=== PATIENT | female | born 1965 | race Caucasian/White ===

== ENCOUNTER 2016-10-04 13:29 | Inpatient (IN) | payer OTHER ==
--- NOTE | ~2016-10-04 | OP ---
Record Of Operation [facility] [address] [place]. [address] NAME: SARA BOWLING : 65 STATUS : ADM IN [facility]#: [id number] AGE: 50 ADM/REG DATE : 10/04/16 MR#: [id number] REPORT SERV DATE: 10/05/16 DICTATED BY: IBRAHIMA ALONSO DATE: 10/04/16 REPORT STATUS : Draft TRANSCRIBED BY: MODL DATE: 10/04/16 DATE OF PROCEDURE: 10/04/2016 PREOPERATIVE DIAGNOSES: 1. 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 2. Chronic obstructive pulmonary disease with bronchitis and recent steroid usage and admission to the hospital. 3. Morbid obesity. 4. Hypertension with noncompliance of medication. POSTOPERATIVE DIAGNOSES: 1. 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 2. Chronic obstructive pulmonary disease with bronchitis and recent steroid usage and admission to the hospital. 3. Morbid obesity. 4. Hypertension with noncompliance of medication. PROCEDURE: 1. Incision and drainage of multiple complex left perineal abscesses. 2. Sharp excisional debridement of skin, subcutaneous tissue, and muscle left perineum (23.8 x 3.1 x 4.6 cm). ANESTHESIA: General. SURGEON: Ibrahima Alonso M.D. UPHOLSTERY HANDLER: Enzo. COMPLICATIONS: None. DRAINS: None. ESTIMATED BLOOD LOSS: 50 mL. OPERATIVE TECHNIQUE: The patient was brought to the operating room and placed on the table in supine position. She had preoperative IV antibiotics. She had sequential hose in place. She had a Avery catheter placed. She underwent general endotracheal anesthesia and was placed in lithotomy position and prepped and draped in sterile fashion and time-out was completed. The patient was noted to have a large black necrotic wet foul-smelling area of skin, approximately 4 to 5 cm in circumference, just superior and to the left of the rectum at the base of the labia. This entire necrotic area was excised using electrocautery. The wet necrotic slough was excised deep into the musculature at the perineum, and the patient then had expression of the wound that tracked distally toward the buttock, approximately 6 cm posteriorly. This abscess cavity was completely drained and opened. The patient was noted to have tracking anteriorly of this abscess cavity into multiple abscesses up onto the inguinal region and the lower left abdomen. The entire skin subcutaneous tissue, and muscle Record Of Operation [address] [place]. [address] NAME: SARA BOWLING : 65 STATUS : ADM IN PAT#: [id number] AGE: 50 ADM/REG DATE : 10/04/16 MR#: [id number] REPORT SERV DATE: 10/05/16 DICTATED BY: IBRAHIMA ALONSO DATE: 10/04/16 REPORT STATUS : Draft TRANSCRIBED BY: MODL DATE: 10/04/16 was then excised sharply to remove all wet necrotic slough and drained all the complex multiple abscesses. The fluid was drained, and tissue was sent for multiple cultures as well as histology. After all the necrotic tissue was drained and the abscesses unroofed with electrocautery, the hemostasis was obtained using electrocautery and suture ligation with 3-0 Vicryl sutures. The wound was then irrigated with pulse lavage for 3 L and noted to be hemostatic. Aquacel Ag was then placed in the wound followed by dry gauze and mesh underwear. She tolerated the procedure well and was taken to the intensive care unit intubated and in critical condition. /MARY Ibrahima Alonso M.D. / [id number] CC: Татьяна Crowell M.D.
--- NOTE | ~2016-10-04 | CN ---
Consultation Report [facility] [address] [place]. [address] NAME: SARA BOWLING : 65 STATUS : ADM IN [facility]#: [id number] AGE: 50 ADM/REG DATE : 10/04/16 MR#: [id number] REPORT SERV DATE: 10/05/16 DICTATED BY: KYLE INIGUEZ DATE: 10/04/16 REPORT STATUS : Draft TRANSCRIBED BY: MODL DATE: 10/04/16 CONSULTATION DATE OF CONSULTATION: 10/04/2016 TIME: 1842 hours seen in CVICU bed 18 after her operation. HISTORY OF PRESENT ILLNESS: The patient's history is from the chart. The patient is a 50- year-old white female, who was admitted to the emergency room at [facility] after presenting with vaginal discharge, onset approximately a day ago. Note her vaginal area is enlarged and had a lot of pus. According to notes, the patient had been previously hospitalized for COPD and hypertension in [place]. She also complains of urinary retention. She has been treated for COPD in the past. Unknown about her medication history at this point in time. The patient is . She lives with her spouse. Smoked in the past. FAMILY HISTORY: Negative. History of COPD and hypertension. REVIEW OF SYSTEMS: As noted above, which is significant for fever, shortness of breath, dysuria, and frequency. Other systems reviewed were negative. PHYSICAL EXAMINATION: GENERAL: Right now, the patient is orally intubated. VITAL SIGNS: Blood pressure 120/70, pulse is about 90. HEENT: Head is normocephalic. Sclerae and conjunctivae are clear. NECK: Supple. Good upstroke. CHEST: Bilateral expiratory wheezing, very prolonged. CARDIAC: S1 and S2. No murmurs or gallops. ABDOMEN: Slightly obese. As far as I can tell, nontender. Bowel sounds present. Her lower perineal area is dressed on the left side. EXTREMITIES: No clubbing, cyanosis, or edema. Pulses are palpable. NEUROLOGIC: She is still coming out of anesthesia. LABORATORY DATA: Recent blood gas on mechanical ventilation showed a pH of 7.30, pCO2 of 47, PO2 of 255 on 80%, rate of 14, 500, PEEP of 4. Her procalcitonin is 2.47. Her lactate level is 1.5. BNP is 57. Her sodium was 131, potassium 3.3, chloride 94, CO2 of 21, BUN 11, creatinine 0.7, glucose 128, calcium 7.9, total protein 6.4, albumin 2.0, total bilirubin 1.6, alkaline phosphatase 115, ALT 30, AST 29. Troponin less than 0.02. Urinalysis showed greater than 182 red blood cells, 92 white blood cells, white blood cell clumps, rare bacteria. CBC showed an H and H of 12.3 and 34.6, white count 79245, platelet count 102,000 with 49 polys 45 bands. Toxic granulations +1. PTT is 25.6, PT 15, INR 1.2. Chest x-ray showed no acute cardiopulmonary disease. Lines are in place. OG tube is in place. Consultation Report [address] [address] NAME: SARA BOWLING : 65 STATUS : ADM IN [facility]#: [id number] AGE: 50 ADM/REG DATE : 10/04/16 MR#: [id number] REPORT SERV DATE: 10/05/16 DICTATED BY: KYLE INIGUEZ DATE: 10/04/16 REPORT STATUS : Draft TRANSCRIBED BY: MARY DATE: 10/04/16 IMPRESSION: 1. Probable Sam's gangrene and sepsis, vaginal area. 2. Chronic obstructive pulmonary disease with chronic obstructive pulmonary disease exacerbation. 3. History of hypothyroidism. 4. History of hypertension. Of note, prior to surgery, blood pressure was over 200 and her heart rate was about 205. She was given Cardizem. Blood pressure controlled currently on 1 mcg per minute of Levophed. PLAN: Will be to initiate bronchodilator therapy, IV Solu-Medrol, and wean from ventilator when appropriate. We will continue present antibiotics. Infectious Disease to see. Anesthesia record has been reviewed. Her home medications include prednisone, diltiazem, levothyroxine, Primaxin, and ProAir. ALLERGIES: UNKNOWN AT THIS TIME. RP/MARY Kyle Iniguez M.D. / [id number] CC: Ibrahima Bernabe M.D. Edmundo Owusu M.D.
--- NOTE | ~2016-10-04 | CN ---
Consultation Report [facility] [address] [place]. [address] NAME: SARA BOWLING : 65 STATUS : ADM IN [facility]#: [id number] AGE: 50 ADM/REG DATE : 10/04/16 MR#: [id number] REPORT SERV DATE: 10/05/16 DICTATED BY: CHELSIE LUNDY DATE: 10/05/16 REPORT STATUS : Draft TRANSCRIBED BY: MODL DATE: 10/05/16 INFECTIOUS DISEASE CONSULTATION DATE OF CONSULTATION: 10/05/2016 REASON FOR CONSULTATION: Sam gangrene. HISTORY OF PRESENT ILLNESS: This is a 50-year-old female with a past medical history notable for COPD and hypertension. She also is obese. There apparently is not a history of diabetes. She presented to the emergency department at [facility] around noon yesterday complaining of a few days of a vaginal discharge. She also complained of shortness of breath. Apparently, she had been recently hospitalized in [place], although I do not have those details yet. On initial evaluation, she was found to have a marked bandemia and physical exam showed obvious evidence of infection involving her left perineum with black gangrenous changes and foul-smelling gangrene, suggestive of Sam gangrene. The patient was taken urgently to the operating room by Dr. Bernabe with findings indeed of multiple abscesses and foul-smelling drainage with tracking up into the left inguinal region and lower left abdomen, deep into the musculature of the perineum and distally toward the buttock. Extensive debridement was done and multiple cultures were sent, showing gram- positive and gram-negative organisms on Gram stain. I have discussed the case with Dr. Bernabe, and the patient was placed on vancomycin and Zosyn. Overnight, she has done well and that she has been hemodynamically stable and not requiring pressors. She remains on the ventilator. PAST MEDICAL HISTORY: As outlined above, otherwise unremarkable. ALLERGIES: PENICILLINS. APPARENTLY, PENICILLIN IS LISTED AND SAID TO CAUSE DRY MOUTH. OUTPATIENT MEDICATIONS: Listed as albuterol, diltiazem, levothyroxine, ProctoFoam, and prednisone which apparently was started on 09/30. SOCIAL HISTORY: The patient is . Long-term smoker. Nondrinker. FAMILY HISTORY: Difficult to obtain. REVIEW OF SYSTEMS: Otherwise negative. PHYSICAL EXAMINATION: VITAL SIGNS: The patient weighs 95 kg. She has been afebrile. Pulse at present is around 76, it was as high as 118. Blood pressure 104/59. The patient is on the ventilator, FiO2 of 44%. HEAD AND NECK: Other than her intubated status is unremarkable. LUNGS: Notable for some scattered rhonchi. Consultation Report [facility] [address] [place]. [address] NAME: SARA BOWLING : 65 STATUS : ADM IN [facility]#: [id number] AGE: 50 ADM/REG DATE : 10/04/16 MR#: [id number] REPORT SERV DATE: 10/05/16 DICTATED BY: CHELSIE LUNDY DATE: 10/05/16 REPORT STATUS : Draft TRANSCRIBED BY: MARY DATE: 10/05/16 CARDIAC: Distant heart sounds. Regular rhythm. No murmur, gallop, or rub. ABDOMEN: Obese, soft, quiet, nontender. Postoperative dressings in her left perineum are not removed. EXTREMITIES: Show trace lower extremity edema. SKIN: Without rash. LINES: The patient has a right subclavian triple-lumen catheter. LABORATORY STUDIES: White blood cell count this morning is 15.0, 29% bands, hemoglobin 10.1, platelets are 89,000. Creatinine 0.61. Admission liver function tests normal. Albumin was 1.6. Lactate 1.5. Blood gas this morning shows a pH of 7.26, pCO2 of 52, PO2 of 84 on 45% FiO2. Admission urinalysis showed moderate leukocyte esterase, 92 white blood cells. Urine culture pending. Blood cultures negative to date. Wound cultures negative to date. I should note that the patient did have a CT scan of the abdomen and pelvis yesterday without IV contrast, which was described as showing a cellulitis with subcutaneous gas extending through the perineum into the left perirectal space and along the left pelvic side wall. IMPRESSION: Sam gangrene with sepsis on admission, now status post extensive debridement. Gram stains show evidence of polymicrobial infection. PLAN: We will continue empiric vancomycin and Zosyn pending culture results and will follow with you. PAN/MARY Chelsie Lundy M.D. / [id number] CC: Татьяна Crowell M.D.
--- NOTE | ~2016-10-04 | HP ---
History And Physical [address] [place]. [place]. [address] NAME: SARA BOWLING : 65 STATUS : ADM IN [facility]#: [id number] AGE: 50 ADM/REG DATE : 10/04/16 MR#: [id number] REPORT SERV DATE: 10/04/16 DICTATED BY: IBRAHIMA ALONSO DATE: 10/04/16 REPORT STATUS : Draft TRANSCRIBED BY: MODCastillo DATE: 10/04/16 DATE OF ADMISSION: 10/04/2016 CHIEF COMPLAINT: Left perineal Sam gangrene with sepsis DICTATION ENDS HERE. BRENTON/MARY Ibrahima Alonso M.D. / [id number] CC: Татьяна Crowell M.D.
--- NOTE | ~2016-10-04 | HP ---
History And Physical [place] [address] [facility] [place]. [address] NAME: SARA BOWLING : 65 STATUS : ADM IN [facility]#: [id number] AGE: 50 ADM/REG DATE : 10/04/16 MR#: [id number] REPORT SERV DATE: 10/04/16 DICTATED BY: IBRAHIMA ALONSO DATE: 10/04/16 REPORT STATUS : Draft TRANSCRIBED BY: MODCastillo DATE: 10/04/16 DATE OF ADMISSION: 10/04/2016 HISTORY OF PRESENT ILLNESS: This 50-year-old female presents to the emergency department with a three-day history of vaginal discharge and pain in the left labia. She was recently hospitalized for COPD, bronchitis, and hypertension, in [facility] per the family. She has a long history of cigarette smoking, and morbid obesity. She has been on steroids for her treatment during this course. She was evaluated in the emergency department and [place] [address]. She subsequently had examination and she was noted to have left labial gangrene and soft tissue infection with bullous and crepitance extending up onto the abdomen and to the left perineum. There is black necrotic tissue along the entire left labia. On exam, the patient has fluctuance and pain and foul smell consistent with Sam's gangrene. Her heart rate is greater than 200 in the preoperative holding area and has been treated. The patient's states that she was on an anti- hypertensive pill and she has not been taking it for fear of complications with her lung disease. The patient's and sister at the bedside along with the patient and they are aware that this is a life threatening infection. She has significant shortness of breath, and dyspnea with increased work of breathing and wheezing that is audible. Her SaO2 was 88%. She does have abscess on CT of the soft tissue. PAST MEDICAL HISTORY: As above. PAST SURGICAL HISTORY: No previous history for soft tissue infections. SOCIAL HISTORY: The patient quit smoking on her admission to the hospital approximately 1 week ago. She denies alcohol or illicit drug usage. Her is at the bedside. She is retired. FAMILY HISTORY: Negative for COPD, coronary artery disease, diabetes, hypertension or cancer. REVIEW OF SYSTEMS: Positive for subjective fever, wheezing, shortness of breath, cough, pelvic pain. PHYSICAL EXAMINATION: GENERAL: The patient is an ill-appearing female with increased work of breathing and tachypnea. NECK: Supple. CARDIOVASCULAR: Regular rate with tachycardia. RESPIRATORY: Diffuse rhonchi and wheezing with increased work of breathing and accessory muscle usage. ABDOMEN: Obese, soft, nondistended. BACK: No CVA tenderness. EXTREMITIES: No clubbing. The patient has 1+ pitting edema bilaterally in her lower extremities. : The patient has a left labial abscess with black gangrene and foul smelling drainage History And Physical [address] [address] NAME: SARA BOWLING : 65 STATUS : ADM IN [facility]#: [id number] AGE: 50 ADM/REG DATE : 10/04/16 MR#: [id number] REPORT SERV DATE: 10/04/16 DICTATED BY: IBRAHIMA ALONSO DATE: 10/04/16 REPORT STATUS : Draft TRANSCRIBED BY: MARY DATE: 10/04/16 with erythema bullous and crepitance up on to the left inguinal region, and left perineum. IMAGING: CT findings as above. ASSESSMENT: 1. Sam's gangrene on the left labia and perineum with abscess. Septic shock secondary to Sam gangrene. 2. COPD exacerbation with severe hypoxia wheezing and recent steroid treatment with hospitalization. 3. Morbid obesity. 4. Nicotine dependence. PLAN: After discussion with the family, they understand this infection is life-threatening and that the mortality rate can be as high as 80% with her comorbidities and presentation. They are aware that she will need ICU care after the surgery, if she survives the procedure and may need further surgical intervention. They are aware of the risks, including bleeding, infection, poor cosmetic result, need for further surgical intervention including reconstruction, as well as unforeseen complications such as DVT, PE, WA, CVA and even . They wish to proceed. BRENTON/MARY Ibrahima Alonso M.D. / [id number] CC: Ibrahima Alonso M.D. Edmundo Owusu M.D.
--- NOTE | ~2016-10-04 | OP ---
Record Of Operation [facility]. [address] NAME: SARA BOWLING : 65 STATUS : ADM IN PAT#: [id number] AGE: 50 ADM/REG DATE : 10/04/16 MR#: [id number] REPORT SERV DATE: 10/13/16 DICTATED BY: IBRAHIMA ALONSO DATE: 10/13/16 REPORT STATUS : Draft TRANSCRIBED BY: MODL DATE: 10/13/16 DATE OF PROCEDURE: 10/13/2016 PREOPERATIVE DIAGNOSES: 1. Sam gangrene with sepsis on admission. 2. Chronic obstructive pulmonary disease with history of recent steroid treatment. 3. Nicotine dependence of cigarettes. 4. Hypertension. 5. Large left perineal wound with necrotic slough. 6. Morbid obesity. 7. Diabetes mellitus type 2. POSTOPERATIVE DIAGNOSES: 1. Sam gangrene with sepsis on admission. 2. Chronic obstructive pulmonary disease with history of recent steroid treatment. 3. Nicotine dependence of cigarettes. 4. Hypertension. 5. Large left perineal wound with necrotic slough. 6. Morbid obesity. 7. Diabetes mellitus type 2. PROCEDURES: 1. Robotic diverting sigmoid colostomy. 2. Excision of sigmoid polyp at colostomy maturation site. 3. Sharp excisional debridement of skin, subcutaneous tissue, fascia, and muscle (12.0 x 3.9 x 12.0 cm). 4. VAC pack placement (NPWT). ANESTHESIA: General. SURGEON: Ibrahima Alonso M.D. ASSISTANTS: Carlee and Malcom. COMPLICATIONS: None. DRAINS: None. ESTIMATED BLOOD LOSS: 50 mL. FINDINGS: 1. The patient was noted to have improving necrotic slough in her left perineal wound with minimal purulent drainage in the supralevator component that was thoroughly irrigated. The entire wound was once again debrided of skin, subcutaneous tissue, fascia, and muscle using electrocautery with significantly less total involvement of the wound. There was no evidence of any advancing or progressive myofasciitis clinically. Record Of Operation [facility]. [address] NAME: SARA BOWLING : 65 STATUS : ADM IN PAT#: [id number] AGE: 50 ADM/REG DATE : 10/04/16 MR#: [id number] REPORT SERV DATE: 10/13/16 DICTATED BY: IBRAHIMA ALONSO Castillo DATE: 10/13/16 REPORT STATUS : Draft TRANSCRIBED BY: MODCastillo DATE: 10/13/16 2. A VAC Pack was able to be applied without leak today after diverting colostomy. 3. When the colostomy matured, the patient was noted to have a large mucosal polyp with a long stalk that was excised with stalk cautery and the mucosa oversewn with chromic suture. OPERATIVE TECHNIQUE: The patient was brought to the operating room and placed on the table in supine position. She had general endotracheal anesthesia and a Avery that was previously placed. She underwent general endotracheal anesthesia and was prepped and draped in a sterile fashion and a time-out was completed. The patient then had a 12 mm supraumbilical trocar placed under direct visualization. The robotic camera was used and there was no evidence of Veress or trocar injury. The patient then had an 8 mm robotic trocar placed at the proposed colostomy site, as well as a right upper quadrant and a lateral 8 mm trocar placed under direct visualization. The patient then had an infraumbilical right lower quadrant 12 mm robotic trocar placed at the midclavicular line under direct visualization. The patient was then placed in sharp Trendelenburg and during this portion of the procedure, the patient was noted to have poor IV access and was placed flat again and two IVs were placed in the left arm. The patient was then repositioned and the instruments were then docked and the trocars were then docked with the patient in steep Trendelenburg. The double fenestrated atraumatic grasper was used in the lateral upper left most trocar for bowel elevation and fixation of the sigmoid colon. The #2 trocar in the left mid abdomen was used for an atraumatic grasper to mobilize the bowel and in the right lower quadrant, the vessel sealer, scissor, and stapler was used. After all the instruments were docked and positioned, the sigmoid colon was examined and noted to be mobile. It was then grasped and elevated with the third arm and at this point, dissection began and a window was created in the mesenteric border of the distal sigmoid colon and along mesentery and it was visible. The window was created using initially a scissor, hot jamie, and then the Harmonic Scalpel was used and then the vessel sealer was used. It created a window as it was inserted under the bowel wall and elevated on the patient from right to left and completely visualized. The intervening mesentery was then divided under direct visualization down toward the retroperitoneum. The dissection remained close to bowel wall throughout the procedure and there was no dissection near the retroperitoneum. The mesentery was then mobilized along the white line of Toldt, but more toward the bowel side and the bowel was then completely mobilized after it was first divided with two stapled ends of the standard load fire stapler. The stapler was inserted in the right lower quadrant trocar and fired for protocol with excellent dissection noted along the distal segment. The bowel was then completely mobilized with blunt dissection and a vessel sealer. The bowel wall was viable with injection of indocyanine green prior to division. After an adequate length was deemed mobilized, the robotic portion was completed. A [place] clamp was then placed in the left lower quadrant trocar site and grabbed the stapled the proximal sigmoid colon. It was easily elevated to the anterior abdominal wall and with proper orientation without tension. At this point, the rest of the instruments and trocars were removed and undocked. The anterior fascia and the supraumbilical and right lower quadrant trocars were placed with 0 Vicryl sutures. The skin edges were then thoroughly irrigated and reapproximated using Vicryl sutures followed by Dermabond. The colostomy site was then created at the trocar site in left lower quadrant using electrocautery hook and dissected down to the anterior fascia. The anterior fascia was then dissected around the opening for the trocar site for approximately 2.5 cm and the bowel was dissected bluntly through the rectus muscle and to Record Of Operation [place] [id number] [facility] [place]. [address] NAME: SARA BOWLING : 65 STATUS : ADM IN PAT#: [id number] AGE: 50 ADM/REG DATE : 10/04/16 MR#: [id number] REPORT SERV DATE: 10/13/16 DICTATED BY: IBRAHIMA ALONSO DATE: 10/13/16 REPORT STATUS : Draft TRANSCRIBED BY: MODL DATE: 10/13/16 the posterior peritoneum which was then scored with a right angle clamp away from the bowel. The sigmoid colon was then easily mobilized through the anterior abdominal wall with approximately 11 cm of bowel noted above the fascia. The colostomy was then matured with interrupted three-point fixation 3-0 Vicryl sutures after the staple line was divided with electrocautery. After it was initially divided, the patient was noted to have a visible long polyp extending at the cautery line and it was grasped and elevated off the base of the mucosa and cauterized and sent to pathology. Actually, it was cut with a scissor at the base. The mucosa was reapproximated using interrupted chromic sutures. There was not a full-thickness lesion and the mucosa only was divided. There was a long stalk and it does not appear to be involved clinically. At this point, the colostomy was matured with 3-0 Vicryl three-point fixation and a colostomy appliance was applied. The patient was then re- prepped and draped in lithotomy position. The wound was then sharply debrided using electrocautery to excise all skin, subcu tissue, and muscle including deep into the left perirectal tissues. There did not appear to be rectal involvement clinically as there was no stool or other palpable abnormalities into the lumen. At this point, the necrotic tissue was all removed and then the wound was thoroughly irrigated and measured as above. The measurements were 12.0 x 3.9 x 12.0 cm. The patient then was able to have a black foam black VAC pack placed after two complete pieces of Aquacel Ag were placed in the deep left perirectal cavity. The negative pressure wound therapy was set at 750 mm continuous negative pressure with no leak. She tolerated the procedure well and was taken to the recovery room in critical condition. All sponge and needle counts were reported correct. DH/MODL Ibrahima Alonso M.D. / [id number] CC: Татьяна Crowell M.D. Hal Hill, M.D.
--- NOTE | ~2016-10-04 | OP ---
Record Of Operation [address] [place]. [address] NAME: SARA BOWLING : 65 STATUS : ADM IN PAT#: [id number] AGE: 50 ADM/REG DATE : 10/04/16 MR#: [id number] REPORT SERV DATE: 10/08/16 DICTATED BY: IBRAHIMA ALONSO DATE: 10/08/16 REPORT STATUS : Draft TRANSCRIBED BY: MODL DATE: 10/08/16 DATE OF PROCEDURE: 10/08/2016 PREOPERATIVE DIAGNOSES: 1. Sam gangrene and left perineum necrotic tissue and supralevator abscess. 2. Chronic obstructive pulmonary disease with bronchitis and recent steroid usage and hospitalization. 3. Morbid obesity. 4. Hypertension with noncompliance of medications. 5. Nicotine dependence with greater than [id number] history. 6. Atrial fibrillation. 7. He had a recent septic shock. POSTOPERATIVE DIAGNOSES: 1. Sam gangrene and left perineum necrotic tissue and supralevator abscess. 2. Chronic obstructive pulmonary disease with bronchitis and recent steroid usage and hospitalization. 3. Morbid obesity. 4. Hypertension with noncompliance of medications. 5. Nicotine dependence with greater than 14-[id number]-[id number] history. 6. Atrial fibrillation. 7. She had a recent septic shock. PROCEDURE: Sharp excisional debridement of skin, subcutaneous tissue, muscle, and fascia (29.5 x 3.8 x 12.2 cm). ANESTHESIA: General. SURGEON: Ibrahima Alonso M.D. SAFETY ADVISOR: Gavin. COMPLICATIONS: None. DRAINS: None. ESTIMATED BLOOD LOSS: 20 mL. FLUIDS: 50 mL. FINDINGS: The patient was noted to have minimal necrotic tissue extending mostly posteriorly with extension of a small abscess cavity above the levator muscles that was drained, cultured, and all the further necrotic tissue was excised. OPERATIVE TECHNIQUE: The patient was brought to the operating room and placed on the table in supine position. She remained intubated and sedated. She was placed in lithotomy Record Of Operation [place] [id number] [place]. [address] NAME: SARA BOWLING : 65 STATUS : ADM IN PAT#: [id number] AGE: 50 ADM/REG DATE : 10/04/16 MR#: [id number] REPORT SERV DATE: 10/08/16 DICTATED BY: IBRAHIMA ALONSO DATE: 10/08/16 REPORT STATUS : Draft TRANSCRIBED BY: MARY DATE: 10/08/16 position on the operative room table and prepped and draped in sterile fashion and a time- out was completed. The electrocautery Bovie was then used along with the sharp scissors to excise all the necrotic tissue including skin, subcutaneous tissue, fascia, and muscle. The patient was noted to have a fluid collection above the levator muscles consistent with a supralevator abscess and more necrotic tissue at the extreme proximal and distal edges of the wound extending into the left inguinal region and lower left lower quadrant and posteriorly toward the buttock. All 100% and the necrotic tissue that was visible was excised. The cultures were obtained from the abscess. The tissue was sent to pathology. The wound was then packed with Aquacel Ag dressings followed by ABD and mesh underwear. She was taken in critical condition to the ICU intubated and sedated. She tolerated this portion of the procedure well. BRENTON/MARY Ibrahima Alonso M.D. / [id number] CC: Татьяна Crowell M.D.
--- NOTE | ~2016-10-04 | DS ---
Discharge Summary [facility] [address] [place]. [address] NAME: SARA BOWLING : 65 STATUS : DIS IN PAT#: [id number] AGE: 51 ADM/REG DATE : 10/04/16 MR#: [id number] REPORT SERV DATE: 11/03/16 DICTATED BY: IBRAHIMA ALONSO DATE: 11/02/16 REPORT STATUS : Draft TRANSCRIBED BY: MARY DATE: 11/02/16 Data Collection from hospitalization DISCHARGE DIAGNOSES: 1. Sam gangrene of the left perineum with multiple abscesses and sepsis. 2. Chronic obstructive pulmonary disease with bronchitis and recent steroid usage and admission to the hospital. 3. Morbid obesity. 4. Hypertension with noncompliance of medications. 5. Nicotine dependence. 6. Diabetes mellitus. CONSULTATIONS: Dr. Giovanni Iniguez, Dr. Lamine Lundy. PROCEDURES: 1. Incision and drainage of multiple complex left perineal abscesses, sharp excisional debridement of skin, subcutaneous tissue, and muscle, left perineum (23.8 x 3.1 x 4.6 cm) 10/04/2016. 2. Sharp excisional debridement of skin, subcutaneous tissue, muscle, and fascia (29.5 x 3.8 x 12.2 cm) 10/08/2016. 3. Robotic diverting sigmoid colostomy, excision of sigmoid polyp at the colostomy maturation site, sharp excisional debridement of skin, subcutaneous tissue, fascia and muscle (12.0 x 3.9 x 12.0 cm) Vac-Pac placement (NPWT) 10/13/2016. 4. CT scan of the abdomen and pelvis without contrast, 10/04/2016. PATHOLOGY: Skin and soft tissue, left perineum-bacterial abscess and extensive necrosis, soft tissue perineal area-benign fibroadipose tissue with focal severe acute inflammation and fat necrosis, sigmoid colon polyp polypectomy-tubular adenoma without high-grade dysplasia, segment of sigmoid colon-within normal limits. DISCHARGE MEDICATIONS: Norvasc 10 mg twice a day, levothyroxine 50 mcg daily, Prinivil 10 mg daily, Mycostatin apply topically with dressing changes as directed, Mycostatin oral suspension 5 mL three times a day, Deltasone 20 mg as instructed, Levemir 30 units subcutaneously daily and 15 units subcutaneously at bedtime, dextrose 25 mL IV as needed, Cardizem 100 mg IV as needed, glucagon as instructed, glucose tablets three tablets as needed, Zenpep one capsule as needed, Percocet 5/325 one-two tablets every four hours as needed, ProAir two puffs via inhaler as needed. CONDITION AT DISCHARGE: Stable. DISPOSITION: The patient was discharged to [facility] on an 1800-calorie diabetic diet with activities as instructed. She would follow up with me on 11/06/2016. HOSPITAL COURSE: This is a 51-year-old female who presented to the emergency department with a three-day history of vaginal discharge and pain in the left labia. She was recently hospitalized for COPD, bronchitis, and hypertension in [place], [place], according to her family. She has a long history of cigarette smoking and morbid obesity. She had been on steroids for her treatment during the course. She was evaluated in the emergency Discharge Summary [address] [address] NAME: SARA BOWLING : 65 STATUS : DIS IN PAT#: [id number] AGE: 51 ADM/REG DATE : 10/04/16 MR#: [id number] REPORT SERV DATE: 11/03/16 DICTATED BY: IBRAHIMA ALONSO DATE: 11/02/16 REPORT STATUS : Draft TRANSCRIBED BY: MARY DATE: 11/02/16 department and noted to have a white blood cell count of 10,800. She subsequently had examination and was found to have left labial gangrene and soft tissue infection with bullous and crepitance extending up onto the abdomen and to the left perineum. There was black necrotic tissue along the entire left labia. On exam, the patient had fluctuance and pain and foul smell consistent with Sam gangrene. Her heart rate was greater than 200 in the preoperative holding area and this was treated. Her stated that she was on an antihypertensive pill and she had not been taking it for fear of complications with her lung disease. The patient's family was aware that this was a life-threatening infection. She had significant shortness of breath and dyspnea along with increased work of breathing and wheezing that was audible. CT scan of the abdomen and pelvis without contrast was performed. She was admitted to the hospital at this time for further evaluation and treatment. On admission, treatment options were discussed and it was elected to proceed with surgical intervention. She was taken to the operating room where she underwent the above-mentioned procedure. She tolerated this well. There were no complications. Postoperatively, she was seen by Dr. Giovanni Iniguez. The patient has chronic obstructive pulmonary disease with exacerbation. Her blood pressure prior to surgery was over 200 and her heart rate was about 205. She was given Cardizem. Her blood pressure was controlled currently on 1 mcg/minute of Levophed. We were going to initiate bronchodilator therapy as well as IV Solu-Medrol and wean her from the ventilator when appropriate. Antibiotics were continued as well as her home medications including prednisone, diltiazem, levothyroxine, Primaxin, and ProAir. The following day, she was seen by Dr. Lamine Lundy. Multiple cultures had been sent showing gram- positive and gram-negative organisms on Gram stain. The patient had been placed on vancomycin and Zosyn. Overnight, she had done well and she was hemodynamically stable and not requiring pressors. She remained on the ventilator at this time. White blood cell count was 15 with 29% bands. Admission liver function tests were normal. Blood cultures were negative to date. Urine culture was pending. Wound culture was negative to date. Her Gram stain had shown evidence of polymicrobial infection. We were going to continue empiric vancomycin and Zosyn pending the culture results. She was in a normal sinus rhythm on . She seemed to be doing well. She was afebrile. Synthroid was on hold due to her n.p.o. status. White count was 10.8. The patient was found to have lice. This was treated. She was going to be taken back to the operating room. She was not requiring pressors at this time. Tube feedings were going to begin. Her operative culture had revealed E coli as well as positive diphtheroids. She seemed to be making good progress. She was going to undergo repeat lice treatment on the . On 10/08/2016, she was taken back to the operating room where she underwent the above-mentioned procedure. She tolerated this well. There were no complications. Her insulin regimen was going to be increased. Amlodipine was increased. A PICC line was inserted. White count was now 7. On 10/09/2016, it was felt that the patient would probably need a diverting colostomy the following week if she remained stable from the wound healing. She was still sedated on the ventilator. She was felt to be recovering slowly. It was felt that her hypertension may be secondary to pain. Sliding scale insulin and Levemir were continued. White blood cell count was stable. On the morning of the , she was extubated. Chest x-ray was improving. She had better control of her diabetes. Plans were being made for her to be taken back to the operating room. Zosyn was continued. She was taken out of isolation. On Discharge Summary [place] [id number] [facility] [place]. [address] NAME: SARA BOWLING : 65 STATUS : DIS IN PAT#: [id number] AGE: 51 ADM/REG DATE : 10/04/16 MR#: [id number] REPORT SERV DATE: 11/03/16 DICTATED BY: IBRAHIMA ALONSO DATE: 11/02/16 REPORT STATUS : Draft TRANSCRIBED BY: MARY DATE: 11/02/16 10/13/2016, she was taken back to the operating room where she underwent the above-mentioned procedure. She tolerated this well and there were no complications. The following day, she was up sitting in a chair. She had no new complaints. Her abdomen was soft and nondistended. She was evaluated by Physical Therapy. She seemed to be making progress. On , she was afebrile. She did have some increased abdominal pain that day. She remained afebrile and her white blood cell count was normal. Zosyn was continued. She continued to make satisfactory progress. Nystatin was being given for thrush. She had had some confusion. She underwent diabetes education. She was also evaluated by Occupational Therapy. She had no further bleeding from the labial wound area. Pain was under better control with oral medications. Dressing changes were continued. On , she was tolerating oral intake. Discharge planning was performed. The PICC line was going to be removed. She remained afebrile. She seemed to be in good spirits. IV Pepcid was stopped. On 10/21/2016, she continued to progress. She remained afebrile, off antibiotics. She continued to do well. Discharge planning was performed. On 10/23/2016, she remained afebrile. She had no complaints. Discharge instructions were given. Due to her improved and stable condition, she was discharged to [facility] with the above-stated instructions. Information collected by: Alma Vasquez I submit the above information as my discharge summary. BAIRON/MARY Ibrahima Alonso M.D. / [id number] CC: Татьяна Crowell M.D. Hal Hill, M.D. [facility] Edmundo Owusu M.D.
[2016-10-04 12:43] LABS: ALLENS TEST Pos; BE (BASE EXCESS) -3.8 MEQ/L (0 +/- 2.5); HCO3 (ACTUAL BICARBONATE) 18.9 MEQ/L (23-27); HEMOBLOGIN CONTENT 12.4 G/DL (12-16); INSTRUMENT SERIAL # 8087; METHEMOGLOBIN 0.3 % (0-3); OPERATOR ID 14335; PCO2 (CO2 TENSION) 28 MMHG (35-45); PO2 (O2 TENSION) 70 MMHG (79-93); SAMPLE Arterial; pH 7.45 (7.37-7.43)
[~2016-10-04 13:29] MED LIST: CARDCD120 PO; LEVOTHYROXIN50 MCG PO; P20 PO; PROAIR HFA INH; PROCTOFOAM15 GM TOP
[2016-10-04 13:30] LABS: BASOPHILS 0.2 %; BASOPHILS ABSOLUTE 0.02 10/3/uL (0.0-0.16); EOSINOPHILS 0 %; HEMATOCRIT 34.6 % (36.0-48.0); HEMOGLOBIN 12.3 g/dL (12.0-16.0); IMMATURE GRANULOCYTES 0.5 %; LYMPHOCYTES 6.4 %; LYMPHOCYTES ABSOLUTE 0.69 10/3/uL (0.67-4.30); MEAN CORPUS HGB CONC 35.5 g/dL (32.0-36.0); MEAN CORPUSCULAR VOLUME 95.6 fL (80-100); MEAN PLATELET VOLUME 9.7 fL (9.2-13.0); MONOCYTES 6.7 %; MONOCYTES ABSOLUTE 0.72 10/3/uL (0.21-1.20); NEUTROPHILS 86.2 %; NEUTROPHILS ABSOLUTE 9.31 10/3/uL (2.02-8.40); PLATELET COUNT 102 10/3/uL (150-400); RBC DISTRIBUTION WIDTH 13.5 % (12.0-16.0); RED CELL COUNT 3.62 10/6/uL (4.0-5.6); WHITE BLOOD CELLS 10.8 10/3/uL (4.5-10.5)
[2016-10-04 13:31] LABS: IMMATURE GRANULOCYTES ABSOLUTE 0.05 10/3/uL (0.0-0.11); MANUAL DIFF NO %
[2016-10-04 13:47] LABS: A/G RATIO 0.5 (0.7-1.9); ALKALINE PHOSPHATASE 115 U/L (45-117); BUN (BLOOD UREA NITROGEN) 11 MG/DL (6-23); CALCIUM, SERUM 7.9 MG/DL (8.5-10.4); CHLORIDE, SERUM 94 MMOL/L (96-112); CO2 (CARBON DIOXIDE) 21 MMOL/L (24-34); GFR AFRICAN AMERICAN 117 ML/MIN (>=60); GFR NON AFRICAN AMERICAN 101 ML/MIN (>=60); GLOBULIN 4.4 G/DL (2.5-4.1); GLUCOSE, SERUM 128 MG/DL (60-99); POTASSIUM, SERUM 3.3 MMOL/L (3.5-5.3); SGOT(AST) 29 U/L (5-40); SGPT(ALT) 30 U/L (5-65); SODIUM, SERUM 131 MMOL/L (135-148); TOTAL BILIRUBIN 1.6 MG/DL (0-1.2); TOTAL PROTEIN 6.4 G/DL (6.0-8.5); TROPONIN I <0.02 NG/ML (<0.05)
[2016-10-04 13:49] LABS: ASCORBIC ACID (UR NOT ORDER) NEG (NEG); BILIRUBIN, URINE NEGATIVE (NEG); ER URINALYSIS TAT 0 Hrs 23 Mins; KETONE, URINE 80 MG/DL (NEG); LEUKOCYTE ESTERASE(NOT OR MOD (NEG); NITRITE (URINE) NEG (NEG); WBC (NOT ORDERED) (RFLEX) 92 (0-5)
[2016-10-04 13:51] LABS: BAND NEUTROPHILS 45 %; ER DIFF TAT 0 Hrs 27 Mins; MONOCYTES 6 %; MONOCYTES ABSOLUTE (CALC) 0.65 10/3/uL (0.21-1.20); NEUTROPHILS ABSOLUTE (CALC) 10.15 10/3/uL (2.02-8.40); PLATELET ESTIMATE SLT DEC (ADEQUATE); RBC MORPHOLOGY NORM (NORMAL); SEGMENTED NEUTROPHIL (0) 49 %; TOTAL NUCLEATED CELLS 100; TOXIC GRANULATION 1+
[2016-10-04 14:25] LABS: INTERNATIONAL NORMAL RATI 1.2 UNITS (-); PARTIAL THROMBO TIME 25.6 SEC (22.5-37.2)
[2016-10-04 14:40] LABS: LACTATE 1.5 MMOL/L (0.3-2.4)
[2016-10-04 18:29] LABS: BE (BASE EXCESS) -3.7 MEQ/L (0 +/- 2.5); CARBOXYHEMOGLOBIN 0.4 % (0-3); HCO3 (ACTUAL BICARBONATE) 22.7 MEQ/L (23-27); HEMOBLOGIN CONTENT 10.8 G/DL (12-16); INSTRUMENT SERIAL # 11843; METHEMOGLOBIN 0.2 % (0-3); MODE SIMV; O2 CONTENT 15.5 VOL% (18-24); PCO2 (CO2 TENSION) 47 MMHG (35-45); PO2 (O2 TENSION) 255 MMHG (79-93); SAMPLE Arterial; TIDAL VOLUME 400 ML
[2016-10-04 19:04] LABS: HEMOGLOBIN 10.1 g/dL (12.0-16.0); MEAN CORPUS HGB CONC 35.7 g/dL (32.0-36.0); MEAN CORPUSCULAR HEMOGLOB 34.4 pg (26.0-34.0); MEAN CORPUSCULAR VOLUME 96.3 fL (80-100); MEAN PLATELET VOLUME 9.8 fL (9.2-13.0); PLATELET COUNT 87 10/3/uL (150-400); RBC DISTRIBUTION WIDTH 13.6 % (12.0-16.0); RED CELL COUNT 2.94 10/6/uL (4.0-5.6)
[2016-10-04 19:09] LABS: HEMATOCRIT 28.3 % (36.0-48.0); MANUAL DIFF YES %
[2016-10-04 19:21] LABS: A/G RATIO 0.4 (0.7-1.9); ALBUMIN 1.6 G/DL (3.5-5.0); BUN (BLOOD UREA NITROGEN) 11 MG/DL (6-23); CALCIUM, SERUM 7.3 MG/DL (8.5-10.4); CHLORIDE, SERUM 98 MMOL/L (96-112); CO2 (CARBON DIOXIDE) 25 MMOL/L (24-34); CREATININE 0.68 MG/DL (0.55-1.02); GFR AFRICAN AMERICAN 118 ML/MIN (>=60); GFR NON AFRICAN AMERICAN 102 ML/MIN (>=60); GLOBULIN 3.7 G/DL (2.5-4.1); POTASSIUM, SERUM 3.1 MMOL/L (3.5-5.3); SGOT(AST) 40 U/L (5-40); SGPT(ALT) 33 U/L (5-65); SODIUM, SERUM 134 MMOL/L (135-148); TOTAL PROTEIN 5.3 G/DL (6.0-8.5)
[2016-10-04 19:25] LABS: ALKALINE PHOSPHATASE 102 U/L (45-117); BAND NEUTROPHILS 39 %; GLUCOSE, SERUM 179 MG/DL (60-99); LYMPHOCYTES 2 %; LYMPHOCYTES ABSOLUTE (CALC) 0.24 10/3/uL (0.67-4.30); MONOCYTES 1 %; MONOCYTES ABSOLUTE (CALC) 0.12 10/3/uL (0.21-1.20); NEUTROPHILS ABSOLUTE (CALC) 11.64 10/3/uL (2.02-8.40); SEGMENTED NEUTROPHIL (0) 58 %; TOTAL BILIRUBIN 0.9 MG/DL (0-1.2); TOTAL NUCLEATED CELLS 100; TOXIC GRANULATION 2+
[2016-10-04 19:26] LABS: PLATELET ESTIMATE DEC (ADEQUATE); RBC MORPHOLOGY NORM (NORMAL)
[2016-10-04 22:42] LABS: BE (BASE EXCESS) -3.2 MEQ/L (0 +/- 2.5); CARBOXYHEMOGLOBIN 0.8 % (0-3); HEMOBLOGIN CONTENT 11.3 G/DL (12-16); INSTRUMENT SERIAL # 11843; METHEMOGLOBIN 0.2 % (0-3); MODE SIMV; O2 CONTENT 14.4 VOL% (18-24); OPERATOR ID 32193; PCO2 (CO2 TENSION) 70 MMHG (35-45); PO2 (O2 TENSION) 78 MMHG (79-93); SAMPLE Arterial; TIDAL VOLUME 400 ML; pH 7.19 (7.37-7.43)
[2016-10-05 00:28] LABS: BE (BASE EXCESS) -4.2 MEQ/L (0 +/- 2.5); CARBOXYHEMOGLOBIN 0.4 % (0-3); HCO3 (ACTUAL BICARBONATE) 24.3 MEQ/L (23-27); HEMOBLOGIN CONTENT 11.1 G/DL (12-16); INSTRUMENT SERIAL # 11843; METHEMOGLOBIN 0.2 % (0-3); MODE SIMV; O2 CONTENT 14.5 VOL% (18-24); OPERATOR ID 32193; PCO2 (CO2 TENSION) 62 MMHG (35-45); PO2 (O2 TENSION) 82 MMHG (79-93); SAMPLE Arterial; TIDAL VOLUME 400 ML; pH 7.21 (7.37-7.43)
[2016-10-05 04:23] LABS: BE (BASE EXCESS) -4.5 MEQ/L (0 +/- 2.5); CARBOXYHEMOGLOBIN 0.7 % (0-3); HCO3 (ACTUAL BICARBONATE) 22.8 MEQ/L (23-27); HEMOBLOGIN CONTENT 11.2 G/DL (12-16); INSTRUMENT SERIAL # 11843; METHEMOGLOBIN 0.3 % (0-3); MODE SIMV; O2 CONTENT 14.9 VOL% (18-24); OPERATOR ID 32193; PCO2 (CO2 TENSION) 52 MMHG (35-45); PO2 (O2 TENSION) 84 MMHG (79-93); SAMPLE Arterial; TIDAL VOLUME 400 ML; pH 7.26 (7.37-7.43)
[2016-10-05 04:41] LABS: HEMATOCRIT 29.5 % (36.0-48.0); HEMOGLOBIN 10.1 g/dL (12.0-16.0); MEAN CORPUS HGB CONC 34.2 g/dL (32.0-36.0); MEAN CORPUSCULAR HEMOGLOB 34.2 pg (26.0-34.0); MEAN PLATELET VOLUME 9.9 fL (9.2-13.0); PLATELET COUNT 89 10/3/uL (150-400); RBC DISTRIBUTION WIDTH 13.9 % (12.0-16.0); RED CELL COUNT 2.95 10/6/uL (4.0-5.6)
[2016-10-05 04:43] LABS: MANUAL DIFF YES %
[2016-10-05 05:02] LABS: BUN (BLOOD UREA NITROGEN) 13 MG/DL (6-23); CALCIUM, SERUM 7.3 MG/DL (8.5-10.4); CHLORIDE, SERUM 99 MMOL/L (96-112); CO2 (CARBON DIOXIDE) 23 MMOL/L (24-34); CREATININE 0.61 MG/DL (0.55-1.02); FREE T4 0.44 NG/DL (0.76-1.46); GFR AFRICAN AMERICAN 123 ML/MIN (>=60); GFR NON AFRICAN AMERICAN 106 ML/MIN (>=60); GLUCOSE, SERUM 196 MG/DL (60-99); PHOSPHORUS, SERUM 2.5 MG/DL (2.5-4.5); SODIUM, SERUM 134 MMOL/L (135-148)
[2016-10-05 05:07] LABS: POTASSIUM, SERUM 4.1 MMOL/L (3.5-5.3)
[2016-10-05 05:52] LABS: BAND NEUTROPHILS 29 %; LYMPHOCYTES 3 %; LYMPHOCYTES ABSOLUTE (CALC) 0.45 10/3/uL (0.67-4.30); MONOCYTES 2 %; NEUTROPHILS ABSOLUTE (CALC) 14.25 10/3/uL (2.02-8.40); SEGMENTED NEUTROPHIL (0) 66 %; TOTAL NUCLEATED CELLS 100
[2016-10-05 05:54] LABS: OVALOCYTES 1+ (3-10/OIF) (0-2/OIF)
[2016-10-06 03:26] LABS: BE (BASE EXCESS) -2.9 MEQ/L (0 +/- 2.5); CARBOXYHEMOGLOBIN 0.4 % (0-3); HCO3 (ACTUAL BICARBONATE) 23.7 MEQ/L (23-27); HEMOBLOGIN CONTENT 10.3 G/DL (12-16); INSTRUMENT SERIAL # 11843; METHEMOGLOBIN 0.1 % (0-3); MODE CMV; O2 CONTENT 13.8 VOL% (18-24); OPERATOR ID 17370; PCO2 (CO2 TENSION) 50 MMHG (35-45); PO2 (O2 TENSION) 84 MMHG (79-93); SAMPLE Arterial; TIDAL VOLUME 400 ML
[2016-10-06 04:00] LABS: BASOPHILS 0.2 %; BASOPHILS ABSOLUTE 0.02 10/3/uL (0.0-0.16); EOSINOPHILS 0 %; HEMATOCRIT 27.6 % (36.0-48.0); HEMOGLOBIN 9.5 g/dL (12.0-16.0); IMMATURE GRANULOCYTES 0.6 %; IMMATURE GRANULOCYTES ABSOLUTE 0.06 10/3/uL (0.0-0.11); LYMPHOCYTES 2.8 %; MEAN CORPUS HGB CONC 34.4 g/dL (32.0-36.0); MEAN CORPUSCULAR HEMOGLOB 34.9 pg (26.0-34.0); MEAN CORPUSCULAR VOLUME 101.5 fL (80-100); MEAN PLATELET VOLUME 10.2 fL (9.2-13.0); MONOCYTES 4.8 %; MONOCYTES ABSOLUTE 0.52 10/3/uL (0.21-1.20); NEUTROPHILS 91.6 %; NEUTROPHILS ABSOLUTE 9.94 10/3/uL (2.02-8.40); PLATELET COUNT 98 10/3/uL (150-400); RBC DISTRIBUTION WIDTH 14.5 % (12.0-16.0); RED CELL COUNT 2.72 10/6/uL (4.0-5.6); WHITE BLOOD CELLS 10.8 10/3/uL (4.5-10.5)
[2016-10-06 04:07] LABS: MANUAL DIFF NO %
[2016-10-06 04:23] LABS: A/G RATIO 0.5 (0.7-1.9); ALBUMIN 1.9 G/DL (3.5-5.0); ALKALINE PHOSPHATASE 99 U/L (45-117); BUN (BLOOD UREA NITROGEN) 10 MG/DL (6-23); CALCIUM, SERUM 7.6 MG/DL (8.5-10.4); CHLORIDE, SERUM 102 MMOL/L (96-112); CO2 (CARBON DIOXIDE) 23 MMOL/L (24-34); CREATININE 0.69 MG/DL (0.55-1.02); GFR AFRICAN AMERICAN 118 ML/MIN (>=60); GFR NON AFRICAN AMERICAN 102 ML/MIN (>=60); GLOBULIN 4.1 G/DL (2.5-4.1); POTASSIUM, SERUM 3.3 MMOL/L (3.5-5.3); SGOT(AST) 20 U/L (5-40); SGPT(ALT) 33 U/L (5-65); SODIUM, SERUM 136 MMOL/L (135-148); TOTAL BILIRUBIN 0.8 MG/DL (0-1.2)
[2016-10-06 04:30] LABS: GLUCOSE, SERUM 259 MG/DL (60-99); PHOSPHORUS, SERUM 1.5 MG/DL (2.5-4.5)
[2016-10-06 15:32] LABS: POTASSIUM, SERUM 2.8 MMOL/L (3.5-5.3); VANCOMYCIN TROUGH 15.1 MCG/ML (10.0-20.0)
[2016-10-07 04:19] LABS: BASOPHILS 0.2 %; BASOPHILS ABSOLUTE 0.02 10/3/uL (0.0-0.16); EOSINOPHILS 0.1 %; EOSINOPHILS ABSOLUTE 0.01 10/3/uL (0.0-0.53); HEMATOCRIT 26.9 % (36.0-48.0); IMMATURE GRANULOCYTES 1.2 %; LYMPHOCYTES 3.1 %; LYMPHOCYTES ABSOLUTE 0.26 10/3/uL (0.67-4.30); MEAN CORPUS HGB CONC 33.5 g/dL (32.0-36.0); MEAN CORPUSCULAR VOLUME 101.5 fL (80-100); MEAN PLATELET VOLUME 10.2 fL (9.2-13.0); MONOCYTES 4.6 %; MONOCYTES ABSOLUTE 0.39 10/3/uL (0.21-1.20); NEUTROPHILS 90.8 %; NEUTROPHILS ABSOLUTE 7.73 10/3/uL (2.02-8.40); PLATELET COUNT 106 10/3/uL (150-400); RBC DISTRIBUTION WIDTH 14.8 % (12.0-16.0); RED CELL COUNT 2.65 10/6/uL (4.0-5.6); WHITE BLOOD CELLS 8.5 10/3/uL (4.5-10.5)
[2016-10-07 04:23] LABS: MANUAL DIFF NO %
[2016-10-07 04:33] LABS: A/G RATIO 0.6 (0.7-1.9); ALBUMIN 2.3 G/DL (3.5-5.0); ALKALINE PHOSPHATASE 87 U/L (45-117); BUN (BLOOD UREA NITROGEN) 11 MG/DL (6-23); CALCIUM, SERUM 7.6 MG/DL (8.5-10.4); CHLORIDE, SERUM 104 MMOL/L (96-112); CO2 (CARBON DIOXIDE) 25 MMOL/L (24-34); CREATININE 0.67 MG/DL (0.55-1.02); GFR AFRICAN AMERICAN 119 ML/MIN (>=60); GFR NON AFRICAN AMERICAN 102 ML/MIN (>=60); GLOBULIN 3.8 G/DL (2.5-4.1); GLUCOSE, SERUM 256 MG/DL (60-99); PHOSPHORUS, SERUM 1.7 MG/DL (2.5-4.5); SGOT(AST) 19 U/L (5-40); SGPT(ALT) 27 U/L (5-65); SODIUM, SERUM 139 MMOL/L (135-148); TOTAL BILIRUBIN 0.6 MG/DL (0-1.2); TOTAL PROTEIN 6.1 G/DL (6.0-8.5)
[2016-10-08 03:57] LABS: BASOPHILS 0.3 %; BASOPHILS ABSOLUTE 0.02 10/3/uL (0.0-0.16); EOSINOPHILS 0 %; HEMATOCRIT 26.8 % (36.0-48.0); IMMATURE GRANULOCYTES 1.7 %; IMMATURE GRANULOCYTES ABSOLUTE 0.12 10/3/uL (0.0-0.11); LYMPHOCYTES 4.1 %; LYMPHOCYTES ABSOLUTE 0.29 10/3/uL (0.67-4.30); MANUAL DIFF NO %; MEAN CORPUS HGB CONC 33.6 g/dL (32.0-36.0); MEAN CORPUSCULAR HEMOGLOB 34.1 pg (26.0-34.0); MEAN CORPUSCULAR VOLUME 101.5 fL (80-100); MEAN PLATELET VOLUME 10.1 fL (9.2-13.0); MONOCYTES 4.6 %; MONOCYTES ABSOLUTE 0.32 10/3/uL (0.21-1.20); NEUTROPHILS 89.3 %; NEUTROPHILS ABSOLUTE 6.27 10/3/uL (2.02-8.40); PLATELET COUNT 98 10/3/uL (150-400); RBC DISTRIBUTION WIDTH 14.7 % (12.0-16.0); RED CELL COUNT 2.64 10/6/uL (4.0-5.6)
[2016-10-08 04:08] LABS: ALBUMIN 2.7 G/DL (3.5-5.0); BUN (BLOOD UREA NITROGEN) 12 MG/DL (6-23); CALCIUM, SERUM 7.8 MG/DL (8.5-10.4); CHLORIDE, SERUM 103 MMOL/L (96-112); CO2 (CARBON DIOXIDE) 29 MMOL/L (24-34); CREATININE 0.67 MG/DL (0.55-1.02); GFR AFRICAN AMERICAN 119 ML/MIN (>=60); GFR NON AFRICAN AMERICAN 102 ML/MIN (>=60); GLUCOSE, SERUM 223 MG/DL (60-99); PHOSPHORUS, SERUM 2.2 MG/DL (2.5-4.5); POTASSIUM, SERUM 3.4 MMOL/L (3.5-5.3); SODIUM, SERUM 142 MMOL/L (135-148)
[2016-10-08 04:13] LABS: BE (BASE EXCESS) 4.1 MEQ/L (0 +/- 2.5); CARBOXYHEMOGLOBIN 0.1 % (0-3); HCO3 (ACTUAL BICARBONATE) 28.6 MEQ/L (23-27); HEMOBLOGIN CONTENT 9.8 G/DL (12-16); INSTRUMENT SERIAL # 11843; METHEMOGLOBIN 0.3 % (0-3); MODE CMV; OPERATOR ID 32193; PCO2 (CO2 TENSION) 43 MMHG (35-45); PO2 (O2 TENSION) 77 MMHG (79-93); SAMPLE Arterial; TIDAL VOLUME 400 ML; pH 7.44 (7.37-7.43)
[2016-10-09 04:56] LABS: BASOPHILS 0.1 %; BASOPHILS ABSOLUTE 0.01 10/3/uL (0.0-0.16); EOSINOPHILS 0 %; HEMOGLOBIN 8.8 g/dL (12.0-16.0); IMMATURE GRANULOCYTES 1.3 %; IMMATURE GRANULOCYTES ABSOLUTE 0.09 10/3/uL (0.0-0.11); LYMPHOCYTES 7.5 %; LYMPHOCYTES ABSOLUTE 0.52 10/3/uL (0.67-4.30); MEAN CORPUSCULAR HEMOGLOB 33.2 pg (26.0-34.0); MEAN PLATELET VOLUME 11.1 fL (9.2-13.0); MONOCYTES 4.6 %; MONOCYTES ABSOLUTE 0.32 10/3/uL (0.21-1.20); NEUTROPHILS 86.5 %; NEUTROPHILS ABSOLUTE 5.99 10/3/uL (2.02-8.40); PLATELET COUNT 86 10/3/uL (150-400); RBC DISTRIBUTION WIDTH 16.2 % (12.0-16.0); RED CELL COUNT 2.65 10/6/uL (4.0-5.6); WHITE BLOOD CELLS 6.9 10/3/uL (4.5-10.5)
[2016-10-09 04:57] LABS: MANUAL DIFF NO %; MEAN CORPUS HGB CONC 31.4 g/dL (32.0-36.0); MEAN CORPUSCULAR VOLUME 105.7 fL (80-100)
[2016-10-09 05:16] LABS: ALBUMIN 2.4 G/DL (3.5-5.0); CALCIUM, SERUM 7.7 MG/DL (8.5-10.4); CHLORIDE, SERUM 106 MMOL/L (96-112); CO2 (CARBON DIOXIDE) 29 MMOL/L (24-34); GFR AFRICAN AMERICAN 123 ML/MIN (>=60); GFR NON AFRICAN AMERICAN 106 ML/MIN (>=60); GLUCOSE, SERUM 188 MG/DL (60-99); PHOSPHORUS, SERUM 2.5 MG/DL (2.5-4.5); POTASSIUM, SERUM 3.9 MMOL/L (3.5-5.3); SODIUM, SERUM 142 MMOL/L (135-148)
[2016-10-09 05:21] LABS: BUN (BLOOD UREA NITROGEN) 17 MG/DL (6-23)
[2016-10-10 05:29] LABS: ALBUMIN 2.7 G/DL (3.5-5.0); CALCIUM, SERUM 8.2 MG/DL (8.5-10.4); CHLORIDE, SERUM 104 MMOL/L (96-112); CO2 (CARBON DIOXIDE) 30 MMOL/L (24-34); CREATININE 0.71 MG/DL (0.55-1.02); GFR AFRICAN AMERICAN 115 ML/MIN (>=60); GFR NON AFRICAN AMERICAN 99 ML/MIN (>=60); GLUCOSE, SERUM 174 MG/DL (60-99); PHOSPHORUS, SERUM 2.4 MG/DL (2.5-4.5); POTASSIUM, SERUM 3.8 MMOL/L (3.5-5.3); SODIUM, SERUM 144 MMOL/L (135-148)
[2016-10-10 05:30] LABS: BUN (BLOOD UREA NITROGEN) 24 MG/DL (6-23)
[2016-10-10 06:44] LABS: HEMOGLOBIN 10.2 g/dL (12.0-16.0); MEAN CORPUS HGB CONC 32.4 g/dL (32.0-36.0); MEAN CORPUSCULAR HEMOGLOB 33.4 pg (26.0-34.0); MEAN CORPUSCULAR VOLUME 103.3 fL (80-100); MEAN PLATELET VOLUME 11.7 fL (9.2-13.0); NUCLEATED RED BLOOD CELLS 2.9 /100WBC (0-0); RBC DISTRIBUTION WIDTH 14.9 % (12.0-16.0); RED CELL COUNT 3.05 10/6/uL (4.0-5.6)
[2016-10-10 06:45] LABS: HEMATOCRIT 31.5 % (36.0-48.0); MANUAL DIFF YES %; PLATELET COUNT 123 10/3/uL (150-400)
[2016-10-10 10:44] LABS: BAND NEUTROPHILS 14 %; IMMATURE GRANS ABSOLUTE (CALC) 0.08 10/3/uL (0.0-0.11); LYMPHOCYTES 15 %; MACROCYTES 1+ (5-10/OIF) (0-5/OIF); METAMYELOCYTES 1 %; MONOCYTES 5 %; NEUTROPHILS ABSOLUTE (CALC) 6.32 10/3/uL (2.02-8.40); PLATELET ESTIMATE SLT DEC (ADEQUATE); SEGMENTED NEUTROPHIL (0) 65 %; TOTAL NUCLEATED CELLS 100
[2016-10-10 15:52] LABS: HEMATOCRIT 32.8 % (36.0-48.0); HEMOGLOBIN 10.8 g/dL (12.0-16.0); MEAN CORPUS HGB CONC 32.9 g/dL (32.0-36.0); MEAN CORPUSCULAR HEMOGLOB 33.6 pg (26.0-34.0); MEAN CORPUSCULAR VOLUME 102.2 fL (80-100); MEAN PLATELET VOLUME 11.2 fL (9.2-13.0); PLATELET COUNT 93 10/3/uL (150-400); RBC DISTRIBUTION WIDTH 14.7 % (12.0-16.0); RED CELL COUNT 3.21 10/6/uL (4.0-5.6); WHITE BLOOD CELLS 9.1 10/3/uL (4.5-10.5)
[2016-10-10 16:04] LABS: CHLORIDE, SERUM 103 MMOL/L (96-112); CO2 (CARBON DIOXIDE) 30 MMOL/L (24-34); CREATININE 0.61 MG/DL (0.55-1.02); GFR AFRICAN AMERICAN 123 ML/MIN (>=60); GFR NON AFRICAN AMERICAN 106 ML/MIN (>=60); MANUAL DIFF YES %; POTASSIUM, SERUM 3.7 MMOL/L (3.5-5.3); SODIUM, SERUM 144 MMOL/L (135-148)
[2016-10-10 16:13] LABS: BUN (BLOOD UREA NITROGEN) 28 MG/DL (6-23); GLUCOSE, SERUM 230 MG/DL (60-99)
[2016-10-10 17:06] LABS: BAND NEUTROPHILS 5 %; IMMATURE GRANS ABSOLUTE (CALC) 0.18 10/3/uL (0.0-0.11); LYMPHOCYTES 7 %; LYMPHOCYTES ABSOLUTE (CALC) 0.64 10/3/uL (0.67-4.30); METAMYELOCYTES 1 %; MONOCYTES 8 %; MONOCYTES ABSOLUTE (CALC) 0.73 10/3/uL (0.21-1.20); MYELOCYTES 1 %; NEUTROPHILS ABSOLUTE (CALC) 7.55 10/3/uL (2.02-8.40); SEGMENTED NEUTROPHIL (0) 78 %; TOTAL NUCLEATED CELLS 100
[2016-10-10 17:07] LABS: PLATELET ESTIMATE DEC (ADEQUATE)
[2016-10-10 17:09] LABS: GIANT PLATELET OCC; MACROCYTES 1+ (5-10/OIF) (0-5/OIF); POLYCHROMASIA 1+ (2-5/OIF) (0-1/OIF)
[2016-10-11 03:38] LABS: HEMOGLOBIN 10.4 g/dL (12.0-16.0); MEAN CORPUS HGB CONC 32.5 g/dL (32.0-36.0); MEAN CORPUSCULAR HEMOGLOB 33.3 pg (26.0-34.0); MEAN CORPUSCULAR VOLUME 102.6 fL (80-100); MEAN PLATELET VOLUME 11.4 fL (9.2-13.0); PLATELET COUNT 93 10/3/uL (150-400); RBC DISTRIBUTION WIDTH 14.8 % (12.0-16.0); RED CELL COUNT 3.12 10/6/uL (4.0-5.6); WHITE BLOOD CELLS 6.9 10/3/uL (4.5-10.5)
[2016-10-11 03:40] LABS: MANUAL DIFF YES %
[2016-10-11 03:56] LABS: ALBUMIN 2.5 G/DL (3.5-5.0); BUN (BLOOD UREA NITROGEN) 31 MG/DL (6-23); CALCIUM, SERUM 8.3 MG/DL (8.5-10.4); CHLORIDE, SERUM 105 MMOL/L (96-112); CO2 (CARBON DIOXIDE) 31 MMOL/L (24-34); CREATININE 0.63 MG/DL (0.55-1.02); GFR AFRICAN AMERICAN 121 ML/MIN (>=60); GFR NON AFRICAN AMERICAN 105 ML/MIN (>=60); POTASSIUM, SERUM 3.9 MMOL/L (3.5-5.3); SODIUM, SERUM 145 MMOL/L (135-148)
[2016-10-11 04:00] LABS: LYMPHOCYTES 11 %; LYMPHOCYTES ABSOLUTE (CALC) 0.76 10/3/uL (0.67-4.30); MONOCYTES 8 %; MONOCYTES ABSOLUTE (CALC) 0.55 10/3/uL (0.21-1.20); NEUTROPHILS ABSOLUTE (CALC) 5.59 10/3/uL (2.02-8.40); PLATELET ESTIMATE DEC (ADEQUATE); SEGMENTED NEUTROPHIL (0) 81 %; TOTAL NUCLEATED CELLS 100
[2016-10-11 04:01] LABS: MACROCYTES 1+ (5-10/OIF) (0-5/OIF)
[2016-10-11 04:02] LABS: GLUCOSE, SERUM 176 MG/DL (60-99); PHOSPHORUS, SERUM 3.4 MG/DL (2.5-4.5)
[2016-10-12 04:47] LABS: BASOPHILS 0.3 %; BASOPHILS ABSOLUTE 0.03 10/3/uL (0.0-0.16); EOSINOPHILS 0 %; HEMOGLOBIN 10.5 g/dL (12.0-16.0); IMMATURE GRANULOCYTES 2.6 %; IMMATURE GRANULOCYTES ABSOLUTE 0.23 10/3/uL (0.0-0.11); LYMPHOCYTES 8.3 %; LYMPHOCYTES ABSOLUTE 0.74 10/3/uL (0.67-4.30); MEAN CORPUS HGB CONC 32.8 g/dL (32.0-36.0); MEAN CORPUSCULAR HEMOGLOB 32.9 pg (26.0-34.0); MEAN CORPUSCULAR VOLUME 100.3 fL (80-100); MEAN PLATELET VOLUME 11.1 fL (9.2-13.0); MONOCYTES 11.6 %; MONOCYTES ABSOLUTE 1.03 10/3/uL (0.21-1.20); NEUTROPHILS 77.2 %; NEUTROPHILS ABSOLUTE 6.87 10/3/uL (2.02-8.40); PLATELET COUNT 96 10/3/uL (150-400); RBC DISTRIBUTION WIDTH 14.6 % (12.0-16.0); RED CELL COUNT 3.19 10/6/uL (4.0-5.6); WHITE BLOOD CELLS 8.9 10/3/uL (4.5-10.5)
[2016-10-12 04:49] LABS: MANUAL DIFF NO %
[2016-10-12 07:13] LABS: ALBUMIN 2.3 G/DL (3.5-5.0); BUN (BLOOD UREA NITROGEN) 29 MG/DL (6-23); CALCIUM, SERUM 8.3 MG/DL (8.5-10.4); CHLORIDE, SERUM 103 MMOL/L (96-112); CO2 (CARBON DIOXIDE) 28 MMOL/L (24-34); CREATININE 0.79 MG/DL (0.55-1.02); GFR AFRICAN AMERICAN 101 ML/MIN (>=60); GFR NON AFRICAN AMERICAN 87 ML/MIN (>=60); GLUCOSE, SERUM 153 MG/DL (60-99); PHOSPHORUS, SERUM 4.2 MG/DL (2.5-4.5); POTASSIUM, SERUM 3.6 MMOL/L (3.5-5.3); SODIUM, SERUM 141 MMOL/L (135-148)
[2016-10-13 03:55] LABS: HEMATOCRIT 34.9 % (36.0-48.0); HEMOGLOBIN 11.6 g/dL (12.0-16.0); MEAN CORPUS HGB CONC 33.2 g/dL (32.0-36.0); MEAN CORPUSCULAR HEMOGLOB 34.1 pg (26.0-34.0); MEAN CORPUSCULAR VOLUME 102.6 fL (80-100); PLATELET COUNT 88 10/3/uL (150-400); RBC DISTRIBUTION WIDTH 14.7 % (12.0-16.0); WHITE BLOOD CELLS 7.9 10/3/uL (4.5-10.5)
[2016-10-13 03:57] LABS: MANUAL DIFF YES %
[2016-10-13 04:05] LABS: CALCIUM, SERUM 8.3 MG/DL (8.5-10.4); CHLORIDE, SERUM 105 MMOL/L (96-112); CO2 (CARBON DIOXIDE) 27 MMOL/L (24-34); CREATININE 0.59 MG/DL (0.55-1.02); GFR AFRICAN AMERICAN 124 ML/MIN (>=60); GFR NON AFRICAN AMERICAN 107 ML/MIN (>=60); POTASSIUM, SERUM 3.1 MMOL/L (3.5-5.3); SODIUM, SERUM 144 MMOL/L (135-148)
[2016-10-13 04:10] LABS: BUN (BLOOD UREA NITROGEN) 25 MG/DL (6-23); GLUCOSE, SERUM 66 MG/DL (60-99)
[2016-10-13 04:14] LABS: BAND NEUTROPHILS 8 %; IMMATURE GRANS ABSOLUTE (CALC) 0.16 10/3/uL (0.0-0.11); LYMPHOCYTES 10 %; LYMPHOCYTES ABSOLUTE (CALC) 0.79 10/3/uL (0.67-4.30); MACROCYTES 1+ (5-10/OIF) (0-5/OIF); METAMYELOCYTES 2 %; MONOCYTES 8 %; MONOCYTES ABSOLUTE (CALC) 0.63 10/3/uL (0.21-1.20); NEUTROPHILS ABSOLUTE (CALC) 6.32 10/3/uL (2.02-8.40); PLATELET ESTIMATE DEC (ADEQUATE); SEGMENTED NEUTROPHIL (0) 72 %; TOTAL NUCLEATED CELLS 100
[2016-10-14 05:00] LABS: BASOPHILS 0.1 %; BASOPHILS ABSOLUTE 0.01 10/3/uL (0.0-0.16); EOSINOPHILS 0 %; HEMOGLOBIN 9.4 g/dL (12.0-16.0); IMMATURE GRANULOCYTES 1.8 %; IMMATURE GRANULOCYTES ABSOLUTE 0.14 10/3/uL (0.0-0.11); LYMPHOCYTES 13.6 %; LYMPHOCYTES ABSOLUTE 1.08 10/3/uL (0.67-4.30); MEAN CORPUS HGB CONC 31.9 g/dL (32.0-36.0); MEAN CORPUSCULAR HEMOGLOB 32.4 pg (26.0-34.0); MEAN CORPUSCULAR VOLUME 101.7 fL (80-100); MEAN PLATELET VOLUME 10.5 fL (9.2-13.0); MONOCYTES 2.4 %; MONOCYTES ABSOLUTE 0.19 10/3/uL (0.21-1.20); NEUTROPHILS 82.1 %; NEUTROPHILS ABSOLUTE 6.54 10/3/uL (2.02-8.40); PLATELET COUNT 95 10/3/uL (150-400); RBC DISTRIBUTION WIDTH 14.4 % (12.0-16.0)
[2016-10-14 05:03] LABS: HEMATOCRIT 29.5 % (36.0-48.0); MANUAL DIFF NO %
[2016-10-14 05:14] LABS: BUN (BLOOD UREA NITROGEN) 22 MG/DL (6-23); CALCIUM, SERUM 7.9 MG/DL (8.5-10.4); CHLORIDE, SERUM 109 MMOL/L (96-112); CO2 (CARBON DIOXIDE) 24 MMOL/L (24-34); CREATININE 0.59 MG/DL (0.55-1.02); GFR AFRICAN AMERICAN 124 ML/MIN (>=60); GFR NON AFRICAN AMERICAN 107 ML/MIN (>=60); GLUCOSE, SERUM 127 MG/DL (60-99); POTASSIUM, SERUM 4.2 MMOL/L (3.5-5.3); SODIUM, SERUM 143 MMOL/L (135-148)
[2016-10-15 07:01] LABS: BASOPHILS 0.1 %; BASOPHILS ABSOLUTE 0.01 10/3/uL (0.0-0.16); EOSINOPHILS 0 %; HEMATOCRIT 31.4 % (36.0-48.0); HEMOGLOBIN 10.4 g/dL (12.0-16.0); IMMATURE GRANULOCYTES 4.2 %; IMMATURE GRANULOCYTES ABSOLUTE 0.38 10/3/uL (0.0-0.11); LYMPHOCYTES 10.8 %; LYMPHOCYTES ABSOLUTE 0.98 10/3/uL (0.67-4.30); MEAN CORPUS HGB CONC 33.1 g/dL (32.0-36.0); MEAN CORPUSCULAR HEMOGLOB 33.3 pg (26.0-34.0); MEAN CORPUSCULAR VOLUME 100.6 fL (80-100); MEAN PLATELET VOLUME 10.1 fL (9.2-13.0); MONOCYTES 4.1 %; MONOCYTES ABSOLUTE 0.37 10/3/uL (0.21-1.20); NEUTROPHILS 80.8 %; NEUTROPHILS ABSOLUTE 7.32 10/3/uL (2.02-8.40); PLATELET COUNT 113 10/3/uL (150-400); RBC DISTRIBUTION WIDTH 13.7 % (12.0-16.0); RED CELL COUNT 3.12 10/6/uL (4.0-5.6); WHITE BLOOD CELLS 9.1 10/3/uL (4.5-10.5)
[2016-10-15 07:08] LABS: MANUAL DIFF NO %
[2016-10-15 07:11] LABS: CHLORIDE, SERUM 106 MMOL/L (96-112); CO2 (CARBON DIOXIDE) 24 MMOL/L (24-34); CREATININE 0.58 MG/DL (0.55-1.02); GFR AFRICAN AMERICAN 125 ML/MIN (>=60); GFR NON AFRICAN AMERICAN 107 ML/MIN (>=60); GLUCOSE, SERUM 114 MG/DL (60-99); POTASSIUM, SERUM 3.7 MMOL/L (3.5-5.3); SODIUM, SERUM 141 MMOL/L (135-148)
[2016-10-15 07:14] LABS: BUN (BLOOD UREA NITROGEN) 18 MG/DL (6-23)
[2016-10-16 07:10] LABS: BUN (BLOOD UREA NITROGEN) 15 MG/DL (6-23); CHLORIDE, SERUM 106 MMOL/L (96-112); CO2 (CARBON DIOXIDE) 22 MMOL/L (24-34); CREATININE 0.63 MG/DL (0.55-1.02); GFR AFRICAN AMERICAN 121 ML/MIN (>=60); GFR NON AFRICAN AMERICAN 105 ML/MIN (>=60); POTASSIUM, SERUM 3.5 MMOL/L (3.5-5.3); SODIUM, SERUM 138 MMOL/L (135-148)
[2016-10-16 07:11] LABS: GLUCOSE, SERUM 78 MG/DL (60-99)
[2016-10-16 07:12] LABS: CALCIUM, SERUM 8.1 MG/DL (8.5-10.4)
[2016-10-16 09:55] LABS: ALBUMIN 2.7 G/DL (3.5-5.0); DIRECT BILIRUBIN 0.1 MG/DL (0.0-0.4); INDIRECT BILIRUBIN(NOT ORDER) 0.4 MG/DL (0.1-0.9); SGOT(AST) 20 U/L (5-40); SGPT(ALT) 34 U/L (5-65); TOTAL BILIRUBIN 0.5 MG/DL (0-1.2)
[2016-10-16 09:56] LABS: ALKALINE PHOSPHATASE 106 U/L (45-117)
[2016-10-17 07:13] LABS: BASOPHILS 0.1 %; BASOPHILS ABSOLUTE 0.01 10/3/uL (0.0-0.16); EOSINOPHILS 0.3 %; EOSINOPHILS ABSOLUTE 0.03 10/3/uL (0.0-0.53); HEMOGLOBIN 9.1 g/dL (12.0-16.0); IMMATURE GRANULOCYTES 1.5 %; IMMATURE GRANULOCYTES ABSOLUTE 0.14 10/3/uL (0.0-0.11); LYMPHOCYTES 12.8 %; LYMPHOCYTES ABSOLUTE 1.21 10/3/uL (0.67-4.30); MEAN CORPUS HGB CONC 33.5 g/dL (32.0-36.0); MEAN CORPUSCULAR VOLUME 98.6 fL (80-100); MEAN PLATELET VOLUME 9.7 fL (9.2-13.0); MONOCYTES 4.4 %; MONOCYTES ABSOLUTE 0.42 10/3/uL (0.21-1.20); NEUTROPHILS 80.9 %; NEUTROPHILS ABSOLUTE 7.67 10/3/uL (2.02-8.40); PLATELET COUNT 127 10/3/uL (150-400); RED CELL COUNT 2.76 10/6/uL (4.0-5.6); WHITE BLOOD CELLS 9.5 10/3/uL (4.5-10.5)
[2016-10-17 07:15] LABS: HEMATOCRIT 27.2 % (36.0-48.0); MANUAL DIFF NO %
[2016-10-17 07:28] LABS: BUN (BLOOD UREA NITROGEN) 13 MG/DL (6-23); CHLORIDE, SERUM 105 MMOL/L (96-112); CO2 (CARBON DIOXIDE) 22 MMOL/L (24-34); GLUCOSE, SERUM 98 MG/DL (60-99); SODIUM, SERUM 138 MMOL/L (135-148)
[2016-10-17 07:29] LABS: CREATININE 0.68 MG/DL (0.55-1.02); GFR AFRICAN AMERICAN 118 ML/MIN (>=60); GFR NON AFRICAN AMERICAN 102 ML/MIN (>=60)
[2016-10-18 05:40] LABS: BASOPHILS 0.1 %; BASOPHILS ABSOLUTE 0.01 10/3/uL (0.0-0.16); EOSINOPHILS 0.7 %; EOSINOPHILS ABSOLUTE 0.05 10/3/uL (0.0-0.53); IMMATURE GRANULOCYTES 1.5 %; IMMATURE GRANULOCYTES ABSOLUTE 0.11 10/3/uL (0.0-0.11); LYMPHOCYTES 13.5 %; LYMPHOCYTES ABSOLUTE 1.02 10/3/uL (0.67-4.30); MEAN CORPUS HGB CONC 33.6 g/dL (32.0-36.0); MEAN CORPUSCULAR HEMOGLOB 33.5 pg (26.0-34.0); MEAN CORPUSCULAR VOLUME 99.6 fL (80-100); MEAN PLATELET VOLUME 9.6 fL (9.2-13.0); MONOCYTES 6.8 %; MONOCYTES ABSOLUTE 0.51 10/3/uL (0.21-1.20); NEUTROPHILS 77.4 %; NEUTROPHILS ABSOLUTE 5.83 10/3/uL (2.02-8.40); PLATELET COUNT 102 10/3/uL (150-400); RBC DISTRIBUTION WIDTH 13.7 % (12.0-16.0); RED CELL COUNT 2.39 10/6/uL (4.0-5.6); WHITE BLOOD CELLS 7.5 10/3/uL (4.5-10.5)
[2016-10-18 05:47] LABS: HEMATOCRIT 23.8 % (36.0-48.0); MANUAL DIFF NO %
[2016-10-18 07:06] LABS: CALCIUM, SERUM 7.2 MG/DL (8.5-10.4); CHLORIDE, SERUM 107 MMOL/L (96-112); CO2 (CARBON DIOXIDE) 22 MMOL/L (24-34); CREATININE 0.58 MG/DL (0.55-1.02); GFR AFRICAN AMERICAN 125 ML/MIN (>=60); GFR NON AFRICAN AMERICAN 107 ML/MIN (>=60); GLUCOSE, SERUM 106 MG/DL (60-99); POTASSIUM, SERUM 3.4 MMOL/L (3.5-5.3); SGOT(AST) 9 U/L (5-40); SGPT(ALT) 20 U/L (5-65); SODIUM, SERUM 138 MMOL/L (135-148); TOTAL BILIRUBIN 0.3 MG/DL (0-1.2)
[2016-10-18 07:12] LABS: A/G RATIO 0.8 (0.7-1.9); ALKALINE PHOSPHATASE 85 U/L (45-117); BUN (BLOOD UREA NITROGEN) 9 MG/DL (6-23); GLOBULIN 2.6 G/DL (2.5-4.1); TOTAL PROTEIN 4.6 G/DL (6.0-8.5)
== END 2016-10-23 20:39 | DRG 853 ==
LOC: ER 13:29 → SDC/OF 15:03 → CVICU 17:54 → 5SO 10-14 12:44
PROVIDERS: Emergency Medicine; Family Medicine; Internal Medicine Critical Care Medicine; Internal Medicine Infectious Disease; Specialist; Surgery
PROC: 0KBM0ZZ Excision of Perineum Muscle, Open Approach (ICD-10-PCS; principal; 2016-10-04 15:45)
PROC: 0KBM0ZZ Excision of Perineum Muscle, Open Approach (ICD-10-PCS; 2016-10-08)
PROC: 3E0G76Z Introduction of Nutritional Substance into Upper GI, Via Natural or Artificial Opening (ICD-10-PCS; 2016-10-08)
PROC: 0DH67UZ Insertion of Feeding Device into Stomach, Via Natural or Artificial Opening (ICD-10-PCS; 2016-10-08)
PROC: 02HV33Z Insertion of Infusion Device into Superior Vena Cava, Percutaneous Approach (ICD-10-PCS; 2016-10-08)
PROC: 4A02X4A Measurement of Cardiac Electrical Activity, Guidance, External Approach (ICD-10-PCS; 2016-10-08)
PROC: 0D1N0Z4 Bypass Sigmoid Colon to Cutaneous, Open Approach (ICD-10-PCS; 2016-10-13)
PROC: 8E0W0CZ Robotic Assisted Procedure of Trunk Region, Open Approach (ICD-10-PCS; 2016-10-13)
PROC: 0KBM0ZZ Excision of Perineum Muscle, Open Approach (ICD-10-PCS; 2016-10-13 07:00)
DX: A41.9 Sepsis, unspecified organism (principal); R65.21 Severe sepsis with septic shock; J95.821 Acute postprocedural respiratory failure; L02.215 Cutaneous abscess of perineum; I96 Gangrene, not elsewhere classified; J44.1 Chronic obstructive pulmonary disease with (acute) exacerbation; E66.01 Morbid (severe) obesity due to excess calories; I10 Essential (primary) hypertension; E03.9 Hypothyroidism, unspecified; N76.89 Other specified inflammation of vagina and vulva; B85.0 Pediculosis due to Pediculus humanus capitis; Z23 Encounter for immunization; Z68.38 Body mass index [BMI] 38.0-38.9, adult; Y83.8 Other surgical procedures as the cause of abnormal reaction of the patient, or of later complication, without mention of misadventure at the time of the procedure; Y92.239 Unspecified place in hospital as the place of occurrence of the external cause; Z91.14 Patient's other noncompliance with medication regimen; Z87.891 Personal history of nicotine dependence; Z88.0 Allergy status to penicillin; Z79.899 Other long term (current) drug therapy; Z79.52 Long term (current) use of systemic steroids
CPT/HCPCS: 31720; 36415; 36569; 36600; 71010; 74000; 74176; 80048; 80053; 80069; 80076; 80202; 81001; 82805; 82947; 82962; 83036; 83605; 83735; 83880; 84100; 84132; 84145; 84439; 84443; 84484; 84703; 85025; 85610; 85730; 86850; 86900; 86901; 86920; 87015; 87040; 87070; 87075; 87077; 87086; 87102; 87116; 87186; 87205; 87641; 88304; 88305; 90686; 93005; 94002; 94003; 94640; 94660; 94770; 96374; 96375; 97110-GP; 97163-GP; 97166-GO; 97530-GO; 97530-GP; 97535-GO; 99291; A9270-GY; C1751; G0008; J0153; J0330; J0692; J1120; J1170; J1940; J2250; J2370; J2405; J2543; J2710; J2920; J3010; J3370; P9047

== ENCOUNTER 2016-11-04 16:47 | Inpatient (IN) | payer OTHER ==
--- NOTE | ~2016-11-04 | HP ---
History And Physical [place] [id number] [place]. [address] NAME: SARA BOWLING : 65 STATUS : ADM IN [facility]#: [id number] AGE: 51 ADM/REG DATE : 11/04/16 MR#: [id number] REPORT SERV DATE: 11/04/16 DICTATED BY: MICHELLE CALIX DATE: 11/04/16 REPORT STATUS : Draft TRANSCRIBED BY: MODL DATE: 11/04/16 DATE OF ADMISSION: 11/04/2016 HISTORY OF PRESENT ILLNESS: This is a 51-year-old patient who was transferred here from [facility] after she was taken there from [facility] with the diagnosis of early sepsis and possible pneumonia. The patient was recently discharged from this facility on the 10/23/2016 to [facility]. After being evaluated there, it was thought that she perhaps had a pneumonia and had a CT scan of the chest that showed a right posterior small pulmonary embolus. No other pulmonary emboli were seen. Atelectasis versus infiltrates were seen at the bases. Otherwise, lung burnette were clear. There was no detectable effusion noted, and this was a CTA of the chest. The patient has a known history of Sam gangrene and had a CT of the abdomen and pelvis that showed a left lower quadrant colostomy, gas and trace fluid in the left lateral pelvis lateral to the bladder measuring approximately 8 cm in AP length and 1 cm transversely, possibly indicating an abscess or infection. We were then asked to take the patient in transfer since Dr. Bernabe, her surgeon, is at this facility and is familiar with the patient. The patient received at least 2 L of lactated Ringer's with a systolic pressure in the low 100s. Upon arrival here, the patient is alert and following commands and is on 5 L and in no apparent distress. ALLERGIES: THE PATIENT HAS AN ALLERGY TO PENICILLIN. MEDICATIONS: The only medication that I am aware of is what the patient was discharged on. Discharge medications are as follows and that was 10 mg of Norvasc, levothyroxine at 50 mcg daily, Prinivil at 10 mg daily, Mycostatin oral suspension 3 times a day, Deltasone 20 mg as instructed, Levemir 30 units subcutaneously daily and 15 units at bedtime, dextrose, and I think that was all I can find. Her medications will need to be verified once we are able to find out what they are. PAST MEDICAL HISTORY: Significant for Sam gangrene, sepsis that was treated surgically by Dr. Bernabe in 09/2016. She had short sharp excision and debridement of the skin, subcutaneous tissue, and muscle as well as fascia on the 10/08/2016 and 10/13/2016. She was discharged with wound VACs and instructions on wound care before she went to rehab. OTHER PAST MEDICAL HISTORY: 1. COPD. 2. Bronchitis. 3. Hypertension. 4. Morbid obesity. 5. Nicotine dependence. 6. Diabetes mellitus. SOCIAL HISTORY: The patient quit smoking prior to her admission in September and smoked about a pack a day since the age 25. Denies any illicit drug use, although admits to her share of alcohol intake, but none recently. She is retired and lives at home with her . History And Physical [address] [place]. [address] NAME: SARA BOWLING : 65 STATUS : ADM IN [facility]#: [id number] AGE: 51 ADM/REG DATE : 11/04/16 MR#: [id number] REPORT SERV DATE: 11/04/16 DICTATED BY: MICHELLE CALIX DATE: 11/04/16 REPORT STATUS : Draft TRANSCRIBED BY: MARY DATE: 11/04/16 FAMILY HISTORY: Negative for COPD, hypertension, cancer, and coronary artery disease. REVIEW OF SYSTEMS: At this time, the patient complains productive cough. Denies any fevers, chills, nausea, vomiting, diarrhea, or occasional abdominal discomfort. No syncopal episode, and the remainder of the 12-point receipt review of systems is unremarkable. PHYSICAL EXAMINATION: GENERAL: The patient is alert, awake, and in no apparent distress. VITAL SIGNS: Temperature is 97, heart rate is 89, blood pressure 104/64, O2 saturation is 97% on 5 L, and respiratory rate is 12 to 16. SKIN: Warm and dry. HEENT: Head is atraumatic and normocephalic. Pupils are equal, round, and reactive to light and accommodation. Extraocular eye movements are intact. Sclerae anicteric. Conjunctivae are pink. Nasal mucosa is within normal limits. Oral mucosa is moist. Tongue is midline. NECK: Supple without JVD, lymphadenopathy, or thyromegaly. LUNGS: Exhibit occasional wheeze, decreased at the bases. CARDIAC: Reveals a regular rate and rhythm. No significant murmurs. BREASTS: Symmetrical without masses. ABDOMEN: Obese, nondistended, has a colostomy in place with a scant amount of dark stool in the colostomy bag. Bowel sounds are present, but diminished. No pain to palpation of the abdomen. She does have a wound VAC in place in the left groin into the labia. Dressings posteriorly on the bowel looks. I cannot appreciate any crepitus of the upper thigh. Avery catheter is in place. EXTREMITIES: Without cyanosis, clubbing, or edema. Pulses are palpable and symmetrical. NEUROLOGIC: Cranial nerves 2 through 12 are grossly intact. Motor and sensory are intact. LABORATORY DATA: Labs at this facility are pending. Chest x-ray done here does not show any significant infiltrates. PH is 7.44, pCO2 of 27, pO2 of 72, bicarb was 18, on 95%. Influenza A and B are negative. White cell count is 20,000, hemoglobin 8.1, hematocrit 25, and platelet count is 154,000. Sodium 124, potassium 3.8, chloride 93, carbon dioxide is 20, creatinine is 0.77, calcium is 8.3, glucose is 126. Alkaline phosphatase 113, ALT is 9, AST is 12. EKG shows sinus tachycardia with no ST-segment elevations or depressions. ASSESSMENT AND PLAN: This is a 51-year-old patient with known previous history of Sam gangrene, status post debridement, wound VAC, chronic obstructive pulmonary disease, bronchitis, hypertension, and diabetes mellitus. She is now admitted for re-evaluation for possible early sepsis and possible further incision and drainage of the pelvic area for her Sam gangrene. She does have a very small pulmonary embolus that at this point does not require to be heparinized. The heparin has been stopped at this time in the event of the need for surgical intervention and the patient will be kept n.p.o. after midnight. According to the information I received from [facility], the patient did have blood and urine History And Physical [address] [address] NAME: SARA BOWLING : 65 STATUS : ADM IN [facility]#: [id number] AGE: 51 ADM/REG DATE : 11/04/16 MR#: [id number] REPORT SERV DATE: 11/04/16 DICTATED BY: MICHELLE CALIX DATE: 11/04/16 REPORT STATUS : Draft TRANSCRIBED BY: MARY DATE: 11/04/16 cultures done there, but we will at least verify that and repeat them here, and if she does have a productive sputum, we will send a sputum Gram stain and culture and continue Zosyn for now. SCDs will be used for deep venous thrombosis prophylaxis for now. Nicotine patch will be continued as well as DuoNebs and Dulera for her chronic obstructive pulmonary disease. Sliding insulin scale will be used for blood sugar control. The patient is in guarded condition. She arrived to this facility at 1650 hours. Care of this patient started at 1700 hours and ended at 1830 hours for a total time of 90 minutes of critical care time which required review of labs, evaluation of the patient at bedside, managing hypotension, antibiotics, metabolic derangements, and discussion with surgeon. The patient is at risk for septic shock, further decline in her blood pressure, worsening of her infection especially in the setting of Sam gangrene and possible abscess. /MARY Michelle Calix M.D. / [id number] CC: Michelle Calix M.D. UNKNOWN
--- NOTE | ~2016-11-04 | IDS ---
Interim Discharge Summary [facility] [address] [place]. [address] NAME: SARA BOWLING : 65 STATUS : ADM IN PAT#: [id number] AGE: 51 ADM/REG DATE : 11/04/16 MR#: [id number] REPORT SERV DATE: 11/06/16 DICTATED BY: MICHELLE CALIX DATE: 11/06/16 REPORT STATUS : Draft TRANSCRIBED BY: MODL DATE: 11/06/16 ADMISSION DATE: 11/04/2016 DISCHARGE DATE: HISTORY OF PRESENT ILLNESS: This is a 51-year-old patient, who was recently discharged from this facility after she was treated here in September for Sam's gangrene of the left perineum. She was sent to [facility] and then was thought to be possibly septic and was transferred to [facility] on the 04 of November for further evaluation. While there, she had a CTA of the chest that showed a small pulmonary embolus and infiltrate at the right base. She also had a CT scan of the abdomen that was suspicious for possible further abscess. She was transferred here for further evaluation and treatment. She was seen by Dr. Ibrahima Bernabe, who was familiar with the patient. The patient was cultured and started on Zosyn and then with the subsequent addition of vancomycin. She was taken back to the OR for left ischiorectal abscess excision and debridement. Dr. Bernabe felt that there was not any residual abscess left after this procedure and that she would not need any further debridement over the weekend. She has had a wound VAC in place and wound VAC nurses are aware of her presence in the MICU and the plan is to change the wound VAC on Wednesday. Dr. Justin Jaquez is on-call for Dr. Bernabe over the weekend should any surgical questions arise. Cultures have been sent both by swabbing and intraoperatively from the wound and ID has been asked to follow and adjust any antibiotic therapy. The patient also was thought to possibly have a pneumonia and she did have infiltrate at the right base. When before intubation, this was much better on today's chest x-ray, but she is of course intubated. Sputum culture has been sent and is pending and blood cultures are pending as well. Bronchodilators have been continued since she has a known history of smoking and currently is on a nicotine patch. If the patient is stable and has acceptable parameters, she can probably be extubated Wednesday on the . Sepsis, hypotension, septic shock. The patient did require IV fluid resuscitation and Levophed and still continues on Levophed for septic shock, which seems to be improving. Her cortisol level was high, so she did not require Solu-Cortef. The plan is to wean the Levophed drip and continue antibiotics and suggest antibiotics as per culture. The patient had an episode on the morning of the of a rapid heart rate that appeared to be atrial fibrillation with RVR versus SVT, one dose of adenosine was given with no response. Since the patient was unstable and hypotensive, she was sedated with 4 mg of IV Versed and cardioverted synchronously x1 with 100 joules and reverted back to initially what look like atrial fibrillation or sinus with PACs and currently is in sinus rhythm. She was bolused with 150 mg of IV amiodarone and has continued on an amiodarone drip. Echocardiogram and cardiac enzymes have been sent. Hypothyroidism. Continue Synthroid at current dose. Diabetes mellitus, sliding insulin scale. Bilateral lower extremity DVT as per Dopplers done yesterday since the patient presented Interim Discharge Summary [address] [address] NAME: SARA BOWLING : 65 STATUS : ADM IN [facility]#: [id number] AGE: 51 ADM/REG DATE : 11/04/16 MR#: [id number] REPORT SERV DATE: 11/06/16 DICTATED BY: MICHELLE CALIX DATE: 11/06/16 REPORT STATUS : Draft TRANSCRIBED BY: MARY DATE: 11/06/16 with a small PE over at [facility]; it was thought prudent to rule out the possibility of any further lower extremity clots, which she had. Given the fact that the patient is at a high risk for bleeding and needed to go to the OR for further debridement, Interventional Radiology placed a Loy filter on the with plans to at least attempt a heparin drip on the with no bolus and follow the H and H closely. If tolerated, the patient then can be either transitioned to Coumadin or possibly Eliquis for further treatment of her extensive bilateral extremity DVTs. So, the patient's has been updated and she is currently a full code. /MAYOL Michelle Calix M.D. / [id number] CC: Татьяна Hall M.D.
--- NOTE | ~2016-11-04 | IDS ---
Interim Discharge Summary [facility] [address] [place]. [address] NAME: SARA BOWLING : 65 STATUS : ADM IN PAT#: [id number] AGE: 51 ADM/REG DATE : 11/04/16 MR#: [id number] REPORT SERV DATE: 11/16/16 DICTATED BY: OKSANA CHAMBERLAIN DATE: 11/16/16 REPORT STATUS : Draft TRANSCRIBED BY: MODL DATE: 11/16/16 ADMISSION DATE: 11/04/2016 DISCHARGE DATE: DATE OF INTERIM DISCHARGE SUMMARY: 11/16/2016. SUBJECTIVE: The patient feels okay, breathing better. OBJECTIVE: VITAL SIGNS: 108/52; 100% on 4 L; 15 respirations; 91 pulse, sinus; 98.0 temp. GENERAL: No acute distress. HEENT: PERRLA. No scleral icterus. CARDIOVASCULAR: Regular rate and rhythm. No murmur. RESPIRATORY: Decreased breath sounds bibasilarly. ABDOMEN: No pain to palpation. Wound VAC in place. Avery in place. EXTREMITIES: No edema. No ecchymosis. NEURO: GCS 15. A and O x4. LABS: She has a white count 11.3 from 12.6, from 14.8; hemoglobin 9.3 from 8.6; platelets 273,000. Procal 0.14. Two days ago, sodium 132, potassium 3.5, 98 chloride, 23 bicarb, creatinine 0.47, and BUN 6. IMAGING: I did a repeat CT of the abdomen and pelvis on the , and it had just showed chronic deep wound to the left perineum. Portion of the wound extending to left ischial rectal fossa and the anterior portions of this soft tissue were extending anteriorly over the left pubic symphysis where other was overlying wound VAC. Complex material was noted in deep portions of wound along the left ischiorectal fossa, though no communicating abscesses identified status post interval partial sigmoid colectomy. Ostomy site left lower quadrant abdomen, retained Vicky's pouch. Small, stable 1.9 cm right adrenal adenoma. Also, had lower extremity ultrasound. Extensive bilateral DVTs. IVC filter was placed on 11/06/2016. HOSPITAL COURSE: This is a 51-year-old female with known history of obesity, COPD, bronchitis, hypertension, nicotine dependence, diabetes, and morbid obesity. The patient came in after being transferred from [facility] to [facility] with early sepsis and pneumonia. The patient was considered to have had a PE previously. She had a known history of Sam gangrene, with left lower quadrant colostomy, gas and trace of fluid in left lateral pelvis lateral to the bladder measuring 8 cm x 1 cm indicating possible abscess. As a result, Dr. Bernabe of surgery saw the patient who had known history of Sam gangrene, status post debridement with a wound VAC. She was re-evaluated for possible further I and D. As a result, Dr. Bernabe had seen the left ischiorectal abscess with a history of Sam gangrene, with a new diagnosis of Interim Discharge Summary [address] [address] NAME: SARA BOWLING : 65 STATUS : ADM IN [facility]#: [id number] AGE: 51 ADM/REG DATE : 11/04/16 MR#: [id number] REPORT SERV DATE: 11/16/16 DICTATED BY: OKSANA CHAMBERLAIN DATE: 11/16/16 REPORT STATUS : Draft TRANSCRIBED BY: MARY DATE: 11/16/16 bilateral lower extremity DVTs requiring IVC filter, pneumonia with sepsis, septic shock. Had a sharp excisional debridement of skin, subcutaneous tissue, muscle, the left ischiorectal supralevator abscess 30.1 x 3.5 x 8.2 cm with a VAC pack placement. This was done on 11/05/2016. The patient then was maintained on vancomycin and Zosyn, extubation with requirement for Levophed. Cortisol level was high. She did not require Solu-Cortef. She did have some atrial fibrillation, RVR. She was given a dose of adenosine. As a result, she was sedated with 4 of Versed and cardioverted synchronously with 100 joules, and returned back to sinus rhythm, and placed on 150 IV amio within an amiodarone drip. The patient was transitioned to Eliquis by me. I maintained her on metoprolol tartrate 12.5 p.o. b.i.d., added Spiriva for clinical COPD. She had atelectasis, associated hypoxia. I am trying to wean her oxygen down. Dr. Wallace is following her as well, for which she was found to have some cutaneous candidiasis. She was placed on Diflucan 200 daily. We will defer to ID and our expertise regarding discontinuation of that. Appears to require at least four more days of IV cefazolin and ciprofloxacin p.o. for her septic shock due to ischiorectal abscess requiring further debridement on 11/05/2016. I did a repeat a CT. There is no loculation found. The patient was found to have E. coli that was sensitive to fluoroquinolones as well as Ancef on her surgical culture. She did get 2 units of blood. Placed on IV iron for acute blood loss anemia as well. Hopefully, can be discharged tomorrow. Still waiting insurance confirmation. There is a wound VAC placement. Dr. Bernabe states she can go at this point. Noted to have positive granulation tissue. No drainable abscess seen. Clear, dry, and intact. All questions were answered. It took well over 30 minutes to do. Use an aggressive incentive spirometry. Add bicarb for mild acidosis, and need to wean her oxygen requirements down. WST/MODL Oksana Chamberlain DO / [id number] CC: DO Edmundo Knight M.D.
--- NOTE | ~2016-11-04 | OP ---
Record Of Operation [address] [place]. [address] NAME: SARA BOWLING : 65 STATUS : ADM IN PAT#: [id number] AGE: 51 ADM/REG DATE : 11/04/16 MR#: [id number] REPORT SERV DATE: 11/05/16 DICTATED BY: IBRAHIMA ALONSO DATE: 11/05/16 REPORT STATUS : Draft TRANSCRIBED BY: MODL DATE: 11/05/16 DATE OF PROCEDURE: 11/05/2016 PREOPERATIVE DIAGNOSES: 1. Left ischiorectal abscess with history of Sam gangrene. 2. New diagnosis of bilateral lower extremities deep vein thrombosis with pulmonary embolism. 3. Diabetes mellitus type 2. 4. Chronic obstructive pulmonary disease. 5. Hypothyroidism. 6. Pneumonia with sepsis. POSTOPERATIVE DIAGNOSES: 1. Left ischiorectal abscess with history of Sam gangrene. 2. New diagnosis of bilateral lower extremities deep vein thrombosis with pulmonary embolism. 3. Diabetes mellitus type 2. 4. Chronic obstructive pulmonary disease. 5. Hypothyroidism. 6. Pneumonia with sepsis. PROCEDURE: 1. Sharp excisional debridement of skin, subcutaneous tissue, and muscle of left ischiorectal supralevator abscess (30.1 x 3.5 x 8.2 cm). 2. VAC pack placement. ANESTHESIA: General. SURGEON: Ibrahima Alonso M.D. PRINTING MACHINIST: Jeremiah. COMPLICATIONS: None. DRAINS: None. ESTIMATED BLOOD LOSS: 50 mL. FINDINGS: The patient was noted to have a markedly improved left inguinal and groin wound with no evidence of gangrene. The patient's deep pocket extending cephalad was drained with some purulent material that was cultured. The wound was thoroughly irrigated and there was no evidence of any remaining abscess or recurrent ongoing fascitis. OPERATIVE TECHNIQUE: The patient was brought to the operating room and placed on the table in supine position. She underwent general endotracheal anesthesia and was placed in lithotomy position and was prepped and draped in sterile fashion after a time out. The Record Of [place] [id number] [facility] [place]. [address] NAME: SARA BOWLING : 65 STATUS : ADM IN PAT#: [id number] AGE: 51 ADM/REG DATE : 11/04/16 MR#: [id number] REPORT SERV DATE: 11/05/16 DICTATED BY: IBRAHIMA ALONSO DATE: 11/05/16 REPORT STATUS : Draft TRANSCRIBED BY: MARY DATE: 11/05/16 VERSAJET harmonic hydrostatic debridement system was used to debride the skin, subcutaneous tissue, and muscle circumferentially throughout the entire wound. The entire wound was debrided and the area was thoroughly examined and cultures were obtained from the supralevator component of the cavity. The patient most likely had a false abscess from the VAC pack that was opened and drained. The wound was then thoroughly irrigated. Hemostasis was obtained using Vicryl sutures and electrocautery. The black foam VAC pack was then applied without leak. The patient was taken to the MICU in critical condition. BRENTON/MARY Ibrahima Alonso M.D. / [id number] CC: Татьяна Hall M.D.
--- NOTE | ~2016-11-04 | IDS ---
Interim Discharge Summary [facility] [address] [place]. [address] NAME: SARA BOWLING : 65 STATUS : ADM IN PAT#: [id number] AGE: 51 ADM/REG DATE : 11/04/16 MR#: [id number] REPORT SERV DATE: 11/23/16 DICTATED BY: BERRY MADISON DATE: 11/23/16 REPORT STATUS : Draft TRANSCRIBED BY: MODL DATE: 11/23/16 ADMISSION DATE: 11/04/2016 DISCHARGE DATE: CURRENT INTERIM DIAGNOSES: List includes: 1. Sepsis with shock, resolved. 2. Ischiorectal abscess status post incision and drainage and Vac-Pac placement on 11/05/2016. 3. Bilateral deep vein thrombus. 4. Pulmonary embolus and positive factor 5 Leiden. 5. Chronic hyponatremia, most recent sodium 132. 6. Cutaneous candidiasis that has been treated. 7. Chronic obstructive pulmonary disease and tobacco use. 8. Hypothyroidism, most recent TSH 3.920. HISTORY OF PRESENT ILLNESS: This 51-year-old white female, who had been transferred from [facility] after she had been at [facility] for complaints of sepsis and possible pneumonia. Please see initial H and P of Dr. Marycruz Calix. The patient admitted to the Critical Care Service initially. Please also see the interim discharge summary of Dr. Marycruz Calix, interim discharge summary of Dr. Joseph Zamora as this interim summary will cover dates from 11/17/2016 to 11/23/2016. CONSULTANTS DURING THIS ADMISSION: Include General Surgery, Dr. Bernabe. CONTINUATIOAN OF HOSPITAL COURSE: Beginning on 11/17/2016, I began seeing the patient where she was feeling overall improved and was continuing on her antibiotics pills that had been changed to Bactrim and also Diflucan under the watchful eye of our Infectious Disease team. The patient continued to do well. Her O2 was slowly able to be weaned off. She underwent a Vac-Pac change during this week where the wound looked great with clean beefy red tissue and has been mobilized by Physical Therapy. She completed her course of Diflucan and will be completing her course of Bactrim today on 11/23/2016. She is currently pending placement at [facility] for continued wound care at that facility and overall, patient is doing quite well. CSC/MODL Berry Madison NP / [id number] CC: Татьяна Hatch M.D.
--- NOTE | ~2016-11-04 | DS ---
Discharge Summary [facility] [address] [place]. [address] NAME: SARA BOWLING : 65 STATUS : DIS IN PAT#: [id number] AGE: 51 ADM/REG DATE : 11/04/16 MR#: [id number] REPORT SERV DATE: 11/25/16 DICTATED BY: OKSANA CHAMBERLAIN DATE: 11/24/16 REPORT STATUS : Draft TRANSCRIBED BY: MODL DATE: 11/24/16 ADMISSION DATE: 11/04/2016 DISCHARGE DATE: 11/24/2016 Please see prior discharge summary by Berry Manzano, nurse practitioner. Additionally in summary, briefly please see prior interim discharge summaries for serrato details. 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 As a result, Dr. Bernabe, saw the patient status post debridement with wound VAC. Re-evaluate for possible I and D, seen to have left ischiorectal abscess, history of Sam gangrene, new diagnosis bilateral lower extremity DVTs, required an IVC filter. Noted to have septic shock with sepsis with pneumonia as well. As a result, had sharp excisional debridement of skin, subcutaneous tissue, muscle, left ischiorectal supralevator abscess 30.1 x 3.5 x 8.2 cm with Vac-Pac placement procedure done on the 11/05/2016 maintained on vancomycin and Zosyn, Levophed, was extubated, did not require Solu-Cortef. Cortisol level was high. She had atrial fibrillation RVR, received adenosine, then was cardioverted synchronized to 100 joules with 4 mg of Versed sedation, placed on amiodarone drip then transitioned to Eliquis by me with main maintenance metoprolol tartrate 12.5 p.o. b.i.d., addition of Spiriva. The patient is noted to have E. coli sensitive for quinolones as well as Ancef which was transitioned to Cipro and Ancef. She did get 2 units of blood and IV iron, acute blood loss anemia related surgery. She has had a repeat CT, did not show any drainable abscess or loculation. Then she was maintained here in the hospital for seven additional days for which factor 5 Leiden was tested, and she became positive. The patient also was transitioned to Bactrim with Infectious Disease. Consideration for discontinuation after today. She also was noted seven days prior to have been placed on Diflucan for cutaneous candidiasis, had insurance issues and now hopefully can go to [place]. Her atelectasis associated hypoxia is now improved. She is now on room air. However, I would think she needs to have a pulmonary function test as an outpatient and empiric Spiriva and Dulera for likely COPD given smoking dependence for which she is maintained on nicotine transdermal patch. DISCHARGE MEDICATIONS: Eliquis 5 p.o. b.i.d., Colace 100 p.o. b.i.d., Flonase nasal spray, folic acid 1 mg p.o. daily for three months for soft tissue healing, NovoLog sliding scale, Synthroid 50 mcg p.o. q.a.m., melatonin 3 mg p.o. at bedtime, metoprolol tartrate 12.5 p.o. b.i.d. hold for systolic less than 105, nicotine transdermal patch 21 mg patch daily, as well as nystatin 5 mL after meals, Afrin nasal spray, Protonix 40 p.o. q.a.m. for 1 month, sodium bicarb 1300 mg p.o. b.i.d. for 1 month, [place] Mist nasal spray, Spiriva 18 mcg Discharge Summary [address] [address] NAME: SARA BOWLNIG : 65 STATUS : DIS IN PAT#: [id number] AGE: 51 ADM/REG DATE : 11/04/16 MR#: [id number] REPORT SERV DATE: 11/25/16 DICTATED BY: OKSANA CHAMBERLAIN DATE: 11/24/16 REPORT STATUS : Draft TRANSCRIBED BY: AMRY DATE: 11/24/16 capsule inhaled daily, Demadex 10 p.o. daily, Dulera or Advair 250/50 one puff b.i.d., Lortab 5/325 p.o. q.6 p.r.n. pain, Zofran p.r.n., albuterol p.r.n. I would also like the patient to have magnesium citrate 300 mL p.o. daily p.r.n. constipation as well as Bactrim Double Strength 1 tablet p.o. b.i.d. for 1 day. We will also make this Afrin nasal spray just for 1 month, then discontinue or wean off given rebound rhinitis, . CONSULTS: See prior summaries including Infectious Disease, General surgery, Critical Care. PROCEDURES: See prior discharge summaries. DISCHARGE DIAGNOSES: Septic shock, ischial rectal abscess, atelectasis associated hypoxic clinical chronic obstructive pulmonary disease, cutaneous candidiasis, pulmonary embolism, Deep vein thrombosis, IVC filter, Eliquis, paroxysmal atrial fibrillation. All questions were answered. It took well over 30 minutes to do. ALVINA/MARY Oksana Chamberlain DO / [id number] CC: Татьяна Hatch M.D.
[2016-11-04] MEDS ORDERED: NOVOLOG SC (17:39)
[2016-11-04] MEDS ORDERED: LEVEMFLXPN SC ×2 (17:40)
[2016-11-04] MEDS ORDERED: MSCONTIN PO (17:41)
[2016-11-04] MEDS ORDERED: ZOFRAN4 PO (17:42)
[2016-11-04] MEDS ORDERED: MSIMMR15 PO (17:42)
[2016-11-04] MEDS ORDERED: PEP20 PO (17:43)
[2016-11-04] MEDS ORDERED: GLUCAGON IM (17:44)
[2016-11-04] MEDS ORDERED: ALBUTEROL5 INH (17:45)
[2016-11-04] MEDS ORDERED: IVERMECTIN PO (17:46)
[2016-11-04] MEDS ORDERED: IVERMECTIN TOP (17:47)
[2016-11-04] MEDS ORDERED: HABIT21 TOP (17:48)
[2016-11-04] MEDS ORDERED: HABIT14 TOP (17:49)
[2016-11-04] MEDS ORDERED: HABIT7 TOP (17:49)
[2016-11-04] MEDS ORDERED: P10 PO (17:51)
[2016-11-04] MEDS ORDERED: NORV10 PO (17:51)
[2016-11-04] MEDS ORDERED: PRIN10 PO (17:52)
[2016-11-04] MEDS ORDERED: LEVOTHYROXIN50 MCG PO (17:52)
[2016-11-04] MEDS ORDERED: MAALOX PO (17:53)
[2016-11-04] MEDS ORDERED: NYS500UDL PO (17:53)
[2016-11-04] MEDS ORDERED: PROAIR HFA INH (17:54)
[2016-11-04] MEDS ORDERED: PCET PO (17:54)
[2016-11-04] MEDS ORDERED: MORPHINE SUL5 MG/ML IM (18:13)
[2016-11-04 19:12] LABS: HEMATOCRIT 22.2 % (36.0-48.0); HEMOGLOBIN 7.3 g/dL (12.0-16.0); MANUAL DIFF YES %; MEAN CORPUS HGB CONC 32.9 g/dL (32.0-36.0); MEAN CORPUSCULAR HEMOGLOB 31.6 pg (26.0-34.0); MEAN CORPUSCULAR VOLUME 96.1 fL (80-100); MEAN PLATELET VOLUME 10.2 fL (9.2-13.0); PLATELET COUNT 187 10/3/uL (150-400); RBC DISTRIBUTION WIDTH 14.5 % (12.0-16.0); RED CELL COUNT 2.31 10/6/uL (4.0-5.6); WHITE BLOOD CELLS 17.6 10/3/uL (4.5-10.5)
[2016-11-04 19:27] LABS: BUN (BLOOD UREA NITROGEN) 11 MG/DL (6-23); CHLORIDE, SERUM 102 MMOL/L (96-112); CO2 (CARBON DIOXIDE) 20 MMOL/L (24-34); GFR AFRICAN AMERICAN 122 ML/MIN (>=60); GFR NON AFRICAN AMERICAN 106 ML/MIN (>=60); SGOT(AST) 10 U/L (5-40); SGPT(ALT) 14 U/L (5-65); SODIUM, SERUM 133 MMOL/L (135-148); TOTAL BILIRUBIN 0.3 MG/DL (0-1.2)
[2016-11-04 19:28] LABS: A/G RATIO 0.5 (0.7-1.9); ALKALINE PHOSPHATASE 125 U/L (45-117); GLOBULIN 4.1 G/DL (2.5-4.1); GLUCOSE, SERUM 152 MG/DL (60-99); POTASSIUM, SERUM 4.1 MMOL/L (3.5-5.3); TOTAL PROTEIN 6.1 G/DL (6.0-8.5)
[2016-11-04 20:13] LABS: ASCORBIC ACID (UR NOT ORDER) NEG (NEG); BILIRUBIN, URINE NEGATIVE (NEG); KETONE, URINE NEGATIVE (NEG); LEUKOCYTE ESTERASE(NOT OR MOD (NEG); WBC (NOT ORDERED) (RFLEX) 20 (0-5)
[2016-11-04 20:17] LABS: PROCALCITONIN 0.56 ng/mL (<0.5)
[2016-11-04 22:20] LABS: BAND NEUTROPHILS 4 %; BASOPHILS 2 %; BASOPHILS ABSOLUTE (CALC) 0.35 10/3/uL (0.0-0.16); IMMATURE GRANS ABSOLUTE (CALC) 0.35 10/3/uL (0.0-0.11); LYMPHOCYTES 3 %; LYMPHOCYTES ABSOLUTE (CALC) 0.53 10/3/uL (0.67-4.30); METAMYELOCYTES 2 %; NEUTROPHILS ABSOLUTE (CALC) 16.37 10/3/uL (2.02-8.40); PLATELET ESTIMATE ADQ (ADEQUATE); SEGMENTED NEUTROPHIL (0) 89 %; TOTAL NUCLEATED CELLS 100; TOXIC GRANULATION SLT
[2016-11-05 04:16] LABS: HEMATOCRIT 23.3 % (36.0-48.0); HEMOGLOBIN 7.5 g/dL (12.0-16.0); MEAN CORPUS HGB CONC 32.2 g/dL (32.0-36.0); MEAN CORPUSCULAR HEMOGLOB 30.7 pg (26.0-34.0); MEAN CORPUSCULAR VOLUME 95.5 fL (80-100); PLATELET COUNT 164 10/3/uL (150-400); RBC DISTRIBUTION WIDTH 14.5 % (12.0-16.0); RED CELL COUNT 2.44 10/6/uL (4.0-5.6); WHITE BLOOD CELLS 18.5 10/3/uL (4.5-10.5)
[2016-11-05 04:20] LABS: MANUAL DIFF YES %
[2016-11-05 04:44] LABS: ALBUMIN 1.9 G/DL (3.5-5.0); BUN (BLOOD UREA NITROGEN) 9 MG/DL (6-23); CALCIUM, SERUM 8.1 MG/DL (8.5-10.4); CHLORIDE, SERUM 106 MMOL/L (96-112); CO2 (CARBON DIOXIDE) 20 MMOL/L (24-34); CREATININE 0.54 MG/DL (0.55-1.02); GFR AFRICAN AMERICAN 127 ML/MIN (>=60); GFR NON AFRICAN AMERICAN 109 ML/MIN (>=60); GLUCOSE, SERUM 126 MG/DL (60-99); POTASSIUM, SERUM 3.8 MMOL/L (3.5-5.3); SODIUM, SERUM 137 MMOL/L (135-148)
[2016-11-05 04:45] LABS: PHOSPHORUS, SERUM 2.8 MG/DL (2.5-4.5)
[2016-11-05 05:26] LABS: BAND NEUTROPHILS 9 %; IMMATURE GRANS ABSOLUTE (CALC) 0.19 10/3/uL (0.0-0.11); LYMPHOCYTES 9 %; LYMPHOCYTES ABSOLUTE (CALC) 1.67 10/3/uL (0.67-4.30); METAMYELOCYTES 1 %; NEUTROPHILS ABSOLUTE (CALC) 16.65 10/3/uL (2.02-8.40); PLATELET ESTIMATE ADQ (ADEQUATE); SEGMENTED NEUTROPHIL (0) 81 %; TOTAL NUCLEATED CELLS 100
[2016-11-05 05:28] LABS: RBC MORPHOLOGY NORM (NORMAL)
[2016-11-05 22:26] LABS: BE (BASE EXCESS) -2.4 MEQ/L (0 +/- 2.5); HCO3 (ACTUAL BICARBONATE) 21.4 MEQ/L (23-27); HEMOBLOGIN CONTENT 9.1 G/DL (12-16); INSTRUMENT SERIAL # 8083; METHEMOGLOBIN 0.3 % (0-3); MODE CMV; O2 CONTENT 13.6 VOL% (18-24); OPERATOR ID 31061; PCO2 (CO2 TENSION) 33 MMHG (35-45); PO2 (O2 TENSION) 365 MMHG (79-93); SAMPLE Arterial; TIDAL VOLUME 500 ML; pH 7.43 (7.37-7.43)
[2016-11-06 03:46] LABS: BE (BASE EXCESS) -0.9 MEQ/L (0 +/- 2.5); CARBOXYHEMOGLOBIN 1.1 % (0-3); HCO3 (ACTUAL BICARBONATE) 21.7 MEQ/L (23-27); HEMOBLOGIN CONTENT 7.9 G/DL (12-16); INSTRUMENT SERIAL # 8083; METHEMOGLOBIN 0.3 % (0-3); MODE CMV; OPERATOR ID 23712; PCO2 (CO2 TENSION) 28 MMHG (35-45); PO2 (O2 TENSION) 115 MMHG (79-93); SAMPLE Arterial; TIDAL VOLUME 500 ML; pH 7.51 (7.37-7.43)
[2016-11-06 04:19] LABS: INTERNATIONAL NORMAL RATI 1.1 UNITS (-); PROTIME (NOT ORD) 14.1 SEC (12.0-14.5)
[2016-11-06 04:20] LABS: PARTIAL THROMBO TIME 26.9 SEC (22.5-37.2)
[2016-11-06 04:23] LABS: HEMATOCRIT 24.2 % (36.0-48.0); HEMOGLOBIN 7.8 g/dL (12.0-16.0); MEAN CORPUS HGB CONC 32.2 g/dL (32.0-36.0); MEAN CORPUSCULAR VOLUME 93.1 fL (80-100); MEAN PLATELET VOLUME 8.9 fL (9.2-13.0); NUCLEATED RED BLOOD CELLS 1.2 /100WBC (0-0); PLATELET COUNT 158 10/3/uL (150-400); RBC DISTRIBUTION WIDTH 16.4 % (12.0-16.0)
[2016-11-06 04:24] LABS: MANUAL DIFF YES %
[2016-11-06 04:30] LABS: BUN (BLOOD UREA NITROGEN) 6 MG/DL (6-23); CALCIUM, SERUM 8.2 MG/DL (8.5-10.4); CHLORIDE, SERUM 105 MMOL/L (96-112); CO2 (CARBON DIOXIDE) 20 MMOL/L (24-34); CREATININE 0.47 MG/DL (0.55-1.02); GFR AFRICAN AMERICAN 133 ML/MIN (>=60); GFR NON AFRICAN AMERICAN 114 ML/MIN (>=60); GLUCOSE, SERUM 111 MG/DL (60-99); PHOSPHORUS, SERUM 2.5 MG/DL (2.5-4.5); POTASSIUM, SERUM 3.4 MMOL/L (3.5-5.3); SODIUM, SERUM 138 MMOL/L (135-148)
[2016-11-06 05:01] LABS: BAND NEUTROPHILS 3 %; IMMATURE GRANS ABSOLUTE (CALC) 0.22 10/3/uL (0.0-0.11); LYMPHOCYTES 8 %; LYMPHOCYTES ABSOLUTE (CALC) 1.76 10/3/uL (0.67-4.30); METAMYELOCYTES 1 %; MONOCYTES 7 %; MONOCYTES ABSOLUTE (CALC) 1.54 10/3/uL (0.21-1.20); NEUTROPHILS ABSOLUTE (CALC) 18.48 10/3/uL (2.02-8.40); PLATELET ESTIMATE ADQ (ADEQUATE); RBC MORPHOLOGY NORM (NORMAL); SEGMENTED NEUTROPHIL (0) 81 %; TOTAL NUCLEATED CELLS 100
[2016-11-06 05:02] LABS: TOXIC GRANULATION 1+
[2016-11-06 07:21] LABS: PROCALCITONIN 0.48 ng/mL (<0.5)
[2016-11-06 08:17] LABS: CK-MB < 0.5 NG/ML; CPK 12 U/L (0-200); TROPONIN I <0.02 NG/ML (<0.05)
[2016-11-06 08:53] LABS: BE (BASE EXCESS) -1.3 MEQ/L (0 +/- 2.5); CARBOXYHEMOGLOBIN 1.7 % (0-3); HCO3 (ACTUAL BICARBONATE) 21.7 MEQ/L (23-27); HEMOBLOGIN CONTENT 7.3 G/DL (12-16); INSTRUMENT SERIAL # 8083; METHEMOGLOBIN 0.3 % (0-3); O2 CONTENT 10.1 VOL% (18-24); PCO2 (CO2 TENSION) 29 MMHG (35-45); PO2 (O2 TENSION) 107 MMHG (79-93); pH 7.49 (7.37-7.43)
[2016-11-06 08:54] LABS: MODE CMV; SAMPLE Arterial; TIDAL VOLUME 800 ML
[2016-11-06 12:31] LABS: POTASSIUM, SERUM 3.3 MMOL/L (3.5-5.3)
[2016-11-06 16:39] LABS: TROPONIN I 0.19 NG/ML (<0.05)
[2016-11-06 18:57] LABS: POTASSIUM, SERUM 4.2 MMOL/L (3.5-5.3)
[2016-11-07 00:18] LABS: CPK 16 U/L (0-200); POTASSIUM, SERUM 3.4 MMOL/L (3.5-5.3)
[2016-11-07 00:19] LABS: CK-MB 1.4 NG/ML; TROPONIN I 0.13 NG/ML (<0.05)
[2016-11-07 03:55] LABS: HEMATOCRIT 22.4 % (36.0-48.0); HEMOGLOBIN 7.3 g/dL (12.0-16.0); MANUAL DIFF YES %; MEAN CORPUS HGB CONC 32.6 g/dL (32.0-36.0); MEAN CORPUSCULAR HEMOGLOB 30.8 pg (26.0-34.0); MEAN CORPUSCULAR VOLUME 94.5 fL (80-100); PLATELET COUNT 128 10/3/uL (150-400); RBC DISTRIBUTION WIDTH 16.4 % (12.0-16.0); RED CELL COUNT 2.37 10/6/uL (4.0-5.6); WHITE BLOOD CELLS 12.5 10/3/uL (4.5-10.5)
[2016-11-07 04:10] LABS: BUN (BLOOD UREA NITROGEN) 4 MG/DL (6-23); CALCIUM, SERUM 7.7 MG/DL (8.5-10.4); CHLORIDE, SERUM 110 MMOL/L (96-112); CO2 (CARBON DIOXIDE) 20 MMOL/L (24-34); CREATININE 0.45 MG/DL (0.55-1.02); GFR AFRICAN AMERICAN 134 ML/MIN (>=60); GFR NON AFRICAN AMERICAN 116 ML/MIN (>=60); GLUCOSE, SERUM 98 MG/DL (60-99); PHOSPHORUS, SERUM 2.5 MG/DL (2.5-4.5); SODIUM, SERUM 141 MMOL/L (135-148)
[2016-11-07 04:15] LABS: POTASSIUM, SERUM 4.2 MMOL/L (3.5-5.3)
[2016-11-07 04:28] LABS: BAND NEUTROPHILS 5 %; IMMATURE GRANS ABSOLUTE (CALC) 0.25 10/3/uL (0.0-0.11); LYMPHOCYTES 12 %; METAMYELOCYTES 2 %; MONOCYTES 2 %; MONOCYTES ABSOLUTE (CALC) 0.25 10/3/uL (0.21-1.20); PLATELET ESTIMATE SLT INC (ADEQUATE); SEGMENTED NEUTROPHIL (0) 79 %; TOTAL NUCLEATED CELLS 100
[2016-11-07 04:29] LABS: RBC MORPHOLOGY NORM (NORMAL)
[2016-11-07 04:35] LABS: BE (BASE EXCESS) -1.4 MEQ/L (0 +/- 2.5); CARBOXYHEMOGLOBIN 1.2 % (0-3); HCO3 (ACTUAL BICARBONATE) 21.9 MEQ/L (23-27); HEMOBLOGIN CONTENT 6.9 G/DL (12-16); INSTRUMENT SERIAL # 8083; METHEMOGLOBIN 0.3 % (0-3); MODE CMV; O2 CONTENT 9.7 VOL% (18-24); OPERATOR ID 13415; PCO2 (CO2 TENSION) 30 MMHG (35-45); PO2 (O2 TENSION) 127 MMHG (79-93); SAMPLE Arterial; TIDAL VOLUME 400 ML; pH 7.48 (7.37-7.43)
[2016-11-07 05:52] LABS: PROCALCITONIN 0.16 ng/mL (<0.5)
[2016-11-07 06:16] LABS: CK-MB 1.3 NG/ML; CPK 15 U/L (0-200)
[2016-11-07 06:17] LABS: TROPONIN I 0.09 NG/ML (<0.05)
[2016-11-07 17:06] LABS: BE (BASE EXCESS) -1.9 MEQ/L (0 +/- 2.5); DEVICE NC; HCO3 (ACTUAL BICARBONATE) 21.3 MEQ/L (23-27); HEMOBLOGIN CONTENT 8.1 G/DL (12-16); INSTRUMENT SERIAL # 8083; METHEMOGLOBIN 0.3 % (0-3); PCO2 (CO2 TENSION) 30 MMHG (35-45); PO2 (O2 TENSION) 89 MMHG (79-93); SAMPLE Arterial; pH 7.47 (7.37-7.43)
[2016-11-07 21:52] LABS: ASCORBIC ACID (UR NOT ORDER) NEG (NEG); BILIRUBIN, URINE NEGATIVE (NEG); KETONE, URINE NEGATIVE (NEG); LEUKOCYTE ESTERASE(NOT OR MOD (NEG); WBC (NOT ORDERED) (RFLEX) 90 (0-5)
[2016-11-08 04:31] LABS: HEMATOCRIT 22.5 % (36.0-48.0); HEMOGLOBIN 7.4 g/dL (12.0-16.0); MEAN CORPUS HGB CONC 32.9 g/dL (32.0-36.0); MEAN CORPUSCULAR VOLUME 94.1 fL (80-100); MEAN PLATELET VOLUME 8.7 fL (9.2-13.0); PLATELET COUNT 158 10/3/uL (150-400); RBC DISTRIBUTION WIDTH 15.9 % (12.0-16.0); RED CELL COUNT 2.39 10/6/uL (4.0-5.6); WHITE BLOOD CELLS 12.9 10/3/uL (4.5-10.5)
[2016-11-08 04:35] LABS: MANUAL DIFF YES %
[2016-11-08 04:42] LABS: BUN (BLOOD UREA NITROGEN) 2 MG/DL (6-23); CALCIUM, SERUM 7.9 MG/DL (8.5-10.4); CHLORIDE, SERUM 104 MMOL/L (96-112); CO2 (CARBON DIOXIDE) 23 MMOL/L (24-34); GFR AFRICAN AMERICAN 130 ML/MIN (>=60); GFR NON AFRICAN AMERICAN 112 ML/MIN (>=60); GLUCOSE, SERUM 105 MG/DL (60-99); POTASSIUM, SERUM 3.5 MMOL/L (3.5-5.3); SODIUM, SERUM 139 MMOL/L (135-148)
[2016-11-08 04:45] LABS: PHOSPHORUS, SERUM 3.7 MG/DL (2.5-4.5)
[2016-11-08 06:11] LABS: BAND NEUTROPHILS 5 %; IMMATURE GRANS ABSOLUTE (CALC) 0.13 10/3/uL (0.0-0.11); LYMPHOCYTES 10 %; LYMPHOCYTES ABSOLUTE (CALC) 1.29 10/3/uL (0.67-4.30); METAMYELOCYTES 1 %; MONOCYTES 2 %; MONOCYTES ABSOLUTE (CALC) 0.26 10/3/uL (0.21-1.20); NEUTROPHILS ABSOLUTE (CALC) 11.22 10/3/uL (2.02-8.40); PLATELET ESTIMATE ADQ (ADEQUATE); SEGMENTED NEUTROPHIL (0) 82 %; TOTAL NUCLEATED CELLS 100; TOXIC GRANULATION 1+
[2016-11-08 06:12] LABS: RBC MORPHOLOGY NORM (NORMAL)
[2016-11-09 02:22] LABS: MEAN CORPUS HGB CONC 32.8 g/dL (32.0-36.0); MEAN CORPUSCULAR HEMOGLOB 31.4 pg (26.0-34.0); MEAN CORPUSCULAR VOLUME 95.7 fL (80-100); MEAN PLATELET VOLUME 8.3 fL (9.2-13.0); PLATELET COUNT 148 10/3/uL (150-400); RBC DISTRIBUTION WIDTH 15.8 % (12.0-16.0); WHITE BLOOD CELLS 12.9 10/3/uL (4.5-10.5)
[2016-11-09 02:36] LABS: HEMOGLOBIN 6.6 g/dL (12.0-16.0)
[2016-11-09 02:37] LABS: HEMATOCRIT 20.1 % (36.0-48.0); MANUAL DIFF YES %
[2016-11-09 02:46] LABS: BAND NEUTROPHILS 6 %; IMMATURE GRANS ABSOLUTE (CALC) 0.26 10/3/uL (0.0-0.11); LYMPHOCYTES 11 %; LYMPHOCYTES ABSOLUTE (CALC) 1.42 10/3/uL (0.67-4.30); MONOCYTES 8 %; MONOCYTES ABSOLUTE (CALC) 1.03 10/3/uL (0.21-1.20); MYELOCYTES 2 %; NEUTROPHILS ABSOLUTE (CALC) 10.19 10/3/uL (2.02-8.40); SEGMENTED NEUTROPHIL (0) 73 %; TOTAL NUCLEATED CELLS 100
[2016-11-09 02:47] LABS: HYPOCHROMIA 1+ (3-10/OIF) (0-2/OIF); PLATELET ESTIMATE SLT DEC (ADEQUATE); POLYCHROMASIA 1+ (2-5/OIF) (0-1/OIF); TOXIC GRANULATION 1+
[2016-11-09 03:13] LABS: BUN (BLOOD UREA NITROGEN) 3 MG/DL (6-23); CALCIUM, SERUM 7.7 MG/DL (8.5-10.4); CHLORIDE, SERUM 103 MMOL/L (96-112); CO2 (CARBON DIOXIDE) 24 MMOL/L (24-34); CREATININE 0.46 MG/DL (0.55-1.02); GFR AFRICAN AMERICAN 133 ML/MIN (>=60); GFR NON AFRICAN AMERICAN 115 ML/MIN (>=60); GLUCOSE, SERUM 99 MG/DL (60-99); PHOSPHORUS, SERUM 3.7 MG/DL (2.5-4.5); POTASSIUM, SERUM 3.1 MMOL/L (3.5-5.3); SODIUM, SERUM 139 MMOL/L (135-148)
[2016-11-10 04:50] LABS: MEAN CORPUS HGB CONC 33.5 g/dL (32.0-36.0); MEAN PLATELET VOLUME 8.9 fL (9.2-13.0); PLATELET COUNT 167 10/3/uL (150-400); RBC DISTRIBUTION WIDTH 16.2 % (12.0-16.0); WHITE BLOOD CELLS 16.4 10/3/uL (4.5-10.5)
[2016-11-10 04:53] LABS: HEMATOCRIT 25.4 % (36.0-48.0); HEMOGLOBIN 8.5 g/dL (12.0-16.0); MANUAL DIFF YES %; MEAN CORPUSCULAR VOLUME 92.7 fL (80-100); RED CELL COUNT 2.74 10/6/uL (4.0-5.6)
[2016-11-10 05:03] LABS: BUN (BLOOD UREA NITROGEN) 5 MG/DL (6-23); CALCIUM, SERUM 7.9 MG/DL (8.5-10.4); CHLORIDE, SERUM 100 MMOL/L (96-112); CO2 (CARBON DIOXIDE) 22 MMOL/L (24-34); CREATININE 0.56 MG/DL (0.55-1.02); GFR AFRICAN AMERICAN 125 ML/MIN (>=60); GFR NON AFRICAN AMERICAN 108 ML/MIN (>=60); GLUCOSE, SERUM 88 MG/DL (60-99); PHOSPHORUS, SERUM 3.2 MG/DL (2.5-4.5); POTASSIUM, SERUM 3.3 MMOL/L (3.5-5.3); SODIUM, SERUM 136 MMOL/L (135-148)
[2016-11-10 05:36] LABS: BAND NEUTROPHILS 5 %; IMMATURE GRANS ABSOLUTE (CALC) 0.98 10/3/uL (0.0-0.11); LYMPHOCYTES 9 %; LYMPHOCYTES ABSOLUTE (CALC) 1.48 10/3/uL (0.67-4.30); METAMYELOCYTES 6 %; MONOCYTES 4 %; MONOCYTES ABSOLUTE (CALC) 0.66 10/3/uL (0.21-1.20); NEUTROPHILS ABSOLUTE (CALC) 13.28 10/3/uL (2.02-8.40); PLATELET ESTIMATE ADQ (ADEQUATE); RBC MORPHOLOGY NORM (NORMAL); SEGMENTED NEUTROPHIL (0) 76 %; TOTAL NUCLEATED CELLS 100
[2016-11-11 07:03] LABS: HEMATOCRIT 25.1 % (36.0-48.0); HEMOGLOBIN 8.3 g/dL (12.0-16.0); MANUAL DIFF YES %; MEAN CORPUS HGB CONC 33.1 g/dL (32.0-36.0); MEAN CORPUSCULAR HEMOGLOB 31.2 pg (26.0-34.0); MEAN CORPUSCULAR VOLUME 94.4 fL (80-100); MEAN PLATELET VOLUME 8.6 fL (9.2-13.0); PLATELET COUNT 179 10/3/uL (150-400); RBC DISTRIBUTION WIDTH 15.9 % (12.0-16.0); RED CELL COUNT 2.66 10/6/uL (4.0-5.6); WHITE BLOOD CELLS 15.1 10/3/uL (4.5-10.5)
[2016-11-11 07:19] LABS: BUN (BLOOD UREA NITROGEN) 5 MG/DL (6-23); CALCIUM, SERUM 7.8 MG/DL (8.5-10.4); CHLORIDE, SERUM 103 MMOL/L (96-112); CO2 (CARBON DIOXIDE) 20 MMOL/L (24-34); CREATININE 0.47 MG/DL (0.55-1.02); GFR AFRICAN AMERICAN 133 ML/MIN (>=60); GFR NON AFRICAN AMERICAN 114 ML/MIN (>=60); GLUCOSE, SERUM 117 MG/DL (60-99); PHOSPHORUS, SERUM 3.2 MG/DL (2.5-4.5); POTASSIUM, SERUM 3.5 MMOL/L (3.5-5.3); SODIUM, SERUM 136 MMOL/L (135-148)
[2016-11-11 07:35] LABS: PARTIAL THROMBO TIME 149.8 SEC (22.5-37.2)
[2016-11-11 07:37] LABS: BAND NEUTROPHILS 7 %; EOSINOPHILS 1 %; EOSINOPHILS ABSOLUTE (CALC) 0.15 10/3/uL (0.0-0.53); IMMATURE GRANS ABSOLUTE (CALC) 0.15 10/3/uL (0.0-0.11); LYMPHOCYTES 7 %; LYMPHOCYTES ABSOLUTE (CALC) 1.06 10/3/uL (0.67-4.30); METAMYELOCYTES 1 %; MONOCYTES 6 %; MONOCYTES ABSOLUTE (CALC) 0.91 10/3/uL (0.21-1.20); NEUTROPHILS ABSOLUTE (CALC) 12.84 10/3/uL (2.02-8.40); PLATELET ESTIMATE ADQ (ADEQUATE); POLYCHROMASIA 1+ (2-5/OIF) (0-1/OIF); SEGMENTED NEUTROPHIL (0) 78 %; TOTAL NUCLEATED CELLS 100
[2016-11-12 04:08] LABS: HEMOGLOBIN 9.1 g/dL (12.0-16.0); MANUAL DIFF YES %; MEAN CORPUS HGB CONC 32.5 g/dL (32.0-36.0); MEAN CORPUSCULAR HEMOGLOB 30.5 pg (26.0-34.0); MEAN PLATELET VOLUME 8.9 fL (9.2-13.0); PLATELET COUNT 200 10/3/uL (150-400); RBC DISTRIBUTION WIDTH 15.6 % (12.0-16.0); RED CELL COUNT 2.98 10/6/uL (4.0-5.6); WHITE BLOOD CELLS 14.2 10/3/uL (4.5-10.5)
[2016-11-12 04:23] LABS: BUN (BLOOD UREA NITROGEN) 5 MG/DL (6-23); CALCIUM, SERUM 8.1 MG/DL (8.5-10.4); CHLORIDE, SERUM 104 MMOL/L (96-112); CO2 (CARBON DIOXIDE) 24 MMOL/L (24-34); CREATININE 0.52 MG/DL (0.55-1.02); GFR AFRICAN AMERICAN 128 ML/MIN (>=60); GFR NON AFRICAN AMERICAN 111 ML/MIN (>=60); GLUCOSE, SERUM 105 MG/DL (60-99); PHOSPHORUS, SERUM 3.1 MG/DL (2.5-4.5); POTASSIUM, SERUM 3.6 MMOL/L (3.5-5.3); SODIUM, SERUM 137 MMOL/L (135-148)
[2016-11-12 05:16] LABS: BAND NEUTROPHILS 6 %; EOSINOPHILS 1 %; EOSINOPHILS ABSOLUTE (CALC) 0.14 10/3/uL (0.0-0.53); IMMATURE GRANS ABSOLUTE (CALC) 0.71 10/3/uL (0.0-0.11); LYMPHOCYTES 5 %; LYMPHOCYTES ABSOLUTE (CALC) 0.71 10/3/uL (0.67-4.30); METAMYELOCYTES 5 %; MONOCYTES 6 %; MONOCYTES ABSOLUTE (CALC) 0.85 10/3/uL (0.21-1.20); NEUTROPHILS ABSOLUTE (CALC) 11.79 10/3/uL (2.02-8.40); SEGMENTED NEUTROPHIL (0) 77 %; TOTAL NUCLEATED CELLS 100
[2016-11-12 05:17] LABS: ANISOCYTOSIS 1+ (5-10/OIF) (0-5/OIF); PLATELET ESTIMATE ADQ (ADEQUATE); POLYCHROMASIA 1+ (2-5/OIF) (0-1/OIF)
[2016-11-13 06:03] LABS: BASOPHILS 0.4 %; BASOPHILS ABSOLUTE 0.06 10/3/uL (0.0-0.16); EOSINOPHILS 0.3 %; EOSINOPHILS ABSOLUTE 0.05 10/3/uL (0.0-0.53); HEMATOCRIT 26.5 % (36.0-48.0); HEMOGLOBIN 8.7 g/dL (12.0-16.0); IMMATURE GRANULOCYTES 3.1 %; IMMATURE GRANULOCYTES ABSOLUTE 0.45 10/3/uL (0.0-0.11); LYMPHOCYTES 11.1 %; MEAN CORPUS HGB CONC 32.8 g/dL (32.0-36.0); MEAN CORPUSCULAR HEMOGLOB 30.6 pg (26.0-34.0); MEAN CORPUSCULAR VOLUME 93.3 fL (80-100); NEUTROPHILS 76.1 %; NEUTROPHILS ABSOLUTE 10.99 10/3/uL (2.02-8.40); PLATELET COUNT 202 10/3/uL (150-400); RBC DISTRIBUTION WIDTH 15.9 % (12.0-16.0); RED CELL COUNT 2.84 10/6/uL (4.0-5.6); WHITE BLOOD CELLS 14.5 10/3/uL (4.5-10.5)
[2016-11-13 06:05] LABS: MANUAL DIFF NO %
[2016-11-13 06:13] LABS: BUN (BLOOD UREA NITROGEN) 6 MG/DL (6-23); CALCIUM, SERUM 7.9 MG/DL (8.5-10.4); CHLORIDE, SERUM 98 MMOL/L (96-112); CO2 (CARBON DIOXIDE) 24 MMOL/L (24-34); GFR AFRICAN AMERICAN 130 ML/MIN (>=60); GFR NON AFRICAN AMERICAN 112 ML/MIN (>=60); GLUCOSE, SERUM 100 MG/DL (60-99); PHOSPHORUS, SERUM 3.8 MG/DL (2.5-4.5); POTASSIUM, SERUM 3.1 MMOL/L (3.5-5.3); SODIUM, SERUM 135 MMOL/L (135-148)
[2016-11-14 04:02] LABS: HEMATOCRIT 25.6 % (36.0-48.0); HEMOGLOBIN 8.6 g/dL (12.0-16.0); MEAN CORPUS HGB CONC 33.6 g/dL (32.0-36.0); MEAN CORPUSCULAR HEMOGLOB 31.3 pg (26.0-34.0); MEAN CORPUSCULAR VOLUME 93.1 fL (80-100); PLATELET COUNT 219 10/3/uL (150-400); RBC DISTRIBUTION WIDTH 15.9 % (12.0-16.0); RED CELL COUNT 2.75 10/6/uL (4.0-5.6); WHITE BLOOD CELLS 14.8 10/3/uL (4.5-10.5)
[2016-11-14 04:03] LABS: MANUAL DIFF YES %
[2016-11-14 04:16] LABS: BUN (BLOOD UREA NITROGEN) 7 MG/DL (6-23); CALCIUM, SERUM 7.9 MG/DL (8.5-10.4); CHLORIDE, SERUM 95 MMOL/L (96-112); CO2 (CARBON DIOXIDE) 25 MMOL/L (24-34); CREATININE 0.52 MG/DL (0.55-1.02); GFR AFRICAN AMERICAN 128 ML/MIN (>=60); GFR NON AFRICAN AMERICAN 111 ML/MIN (>=60); GLUCOSE, SERUM 102 MG/DL (60-99); PHOSPHORUS, SERUM 3.3 MG/DL (2.5-4.5); POTASSIUM, SERUM 3.2 MMOL/L (3.5-5.3); SODIUM, SERUM 131 MMOL/L (135-148)
[2016-11-14 04:44] LABS: LYMPHOCYTES 10 %; LYMPHOCYTES ABSOLUTE (CALC) 1.48 10/3/uL (0.67-4.30); MONOCYTES 5 %; MONOCYTES ABSOLUTE (CALC) 0.74 10/3/uL (0.21-1.20); NEUTROPHILS ABSOLUTE (CALC) 12.58 10/3/uL (2.02-8.40); PLATELET ESTIMATE ADQ (ADEQUATE); RBC MORPHOLOGY NORM (NORMAL); SEGMENTED NEUTROPHIL (0) 85 %; TOTAL NUCLEATED CELLS 100
[2016-11-14 05:50] LABS: PROCALCITONIN 0.14 ng/mL (<0.5)
[2016-11-15 05:28] LABS: BASOPHILS 0.2 %; BASOPHILS ABSOLUTE 0.03 10/3/uL (0.0-0.16); EOSINOPHILS 0.1 %; EOSINOPHILS ABSOLUTE 0.01 10/3/uL (0.0-0.53); HEMOGLOBIN 8.6 g/dL (12.0-16.0); IMMATURE GRANULOCYTES 1.4 %; IMMATURE GRANULOCYTES ABSOLUTE 0.17 10/3/uL (0.0-0.11); LYMPHOCYTES 9.6 %; MEAN CORPUS HGB CONC 33.1 g/dL (32.0-36.0); MEAN CORPUSCULAR HEMOGLOB 30.5 pg (26.0-34.0); MEAN CORPUSCULAR VOLUME 92.2 fL (80-100); MONOCYTES 10.7 %; MONOCYTES ABSOLUTE 1.34 10/3/uL (0.21-1.20); PLATELET COUNT 233 10/3/uL (150-400); RED CELL COUNT 2.82 10/6/uL (4.0-5.6); WHITE BLOOD CELLS 12.6 10/3/uL (4.5-10.5)
[2016-11-15 05:32] LABS: MANUAL DIFF NO %
[2016-11-15 05:40] LABS: BUN (BLOOD UREA NITROGEN) 7 MG/DL (6-23); CALCIUM, SERUM 7.9 MG/DL (8.5-10.4); CHLORIDE, SERUM 95 MMOL/L (96-112); CO2 (CARBON DIOXIDE) 27 MMOL/L (24-34); GFR AFRICAN AMERICAN 130 ML/MIN (>=60); GFR NON AFRICAN AMERICAN 112 ML/MIN (>=60); GLUCOSE, SERUM 100 MG/DL (60-99); PHOSPHORUS, SERUM 3.1 MG/DL (2.5-4.5); POTASSIUM, SERUM 3.5 MMOL/L (3.5-5.3); SODIUM, SERUM 132 MMOL/L (135-148)
[2016-11-16 05:43] LABS: BASOPHILS 0.4 %; BASOPHILS ABSOLUTE 0.05 10/3/uL (0.0-0.16); EOSINOPHILS 0.4 %; EOSINOPHILS ABSOLUTE 0.04 10/3/uL (0.0-0.53); HEMATOCRIT 28.6 % (36.0-48.0); HEMOGLOBIN 9.3 g/dL (12.0-16.0); IMMATURE GRANULOCYTES 1.9 %; IMMATURE GRANULOCYTES ABSOLUTE 0.21 10/3/uL (0.0-0.11); LYMPHOCYTES 11.5 %; LYMPHOCYTES ABSOLUTE 1.29 10/3/uL (0.67-4.30); MEAN CORPUS HGB CONC 32.5 g/dL (32.0-36.0); MEAN CORPUSCULAR HEMOGLOB 30.6 pg (26.0-34.0); MEAN CORPUSCULAR VOLUME 94.1 fL (80-100); MONOCYTES 11.1 %; MONOCYTES ABSOLUTE 1.25 10/3/uL (0.21-1.20); NEUTROPHILS 74.7 %; NEUTROPHILS ABSOLUTE 8.42 10/3/uL (2.02-8.40); PLATELET COUNT 273 10/3/uL (150-400); RED CELL COUNT 3.04 10/6/uL (4.0-5.6); WHITE BLOOD CELLS 11.3 10/3/uL (4.5-10.5)
[2016-11-16 05:44] LABS: MANUAL DIFF NO %
[2016-11-16 05:57] LABS: BUN (BLOOD UREA NITROGEN) 6 MG/DL (6-23); CALCIUM, SERUM 8.3 MG/DL (8.5-10.4); CHLORIDE, SERUM 98 MMOL/L (96-112); CO2 (CARBON DIOXIDE) 23 MMOL/L (24-34); CREATININE 0.47 MG/DL (0.55-1.02); GFR AFRICAN AMERICAN 133 ML/MIN (>=60); GFR NON AFRICAN AMERICAN 114 ML/MIN (>=60); GLUCOSE, SERUM 105 MG/DL (60-99); PHOSPHORUS, SERUM 3.5 MG/DL (2.5-4.5); POTASSIUM, SERUM 3.5 MMOL/L (3.5-5.3); SODIUM, SERUM 132 MMOL/L (135-148)
[2016-11-17 05:14] LABS: BASOPHILS 0.4 %; BASOPHILS ABSOLUTE 0.04 10/3/uL (0.0-0.16); HEMATOCRIT 27.2 % (36.0-48.0); HEMOGLOBIN 8.9 g/dL (12.0-16.0); IMMATURE GRANULOCYTES 1.5 %; IMMATURE GRANULOCYTES ABSOLUTE 0.15 10/3/uL (0.0-0.11); LYMPHOCYTES 15.5 %; LYMPHOCYTES ABSOLUTE 1.55 10/3/uL (0.67-4.30); MEAN CORPUS HGB CONC 32.7 g/dL (32.0-36.0); MEAN CORPUSCULAR HEMOGLOB 30.5 pg (26.0-34.0); MEAN CORPUSCULAR VOLUME 93.2 fL (80-100); MEAN PLATELET VOLUME 9.1 fL (9.2-13.0); MONOCYTES 9.5 %; MONOCYTES ABSOLUTE 0.95 10/3/uL (0.21-1.20); NEUTROPHILS 72.1 %; NEUTROPHILS ABSOLUTE 7.18 10/3/uL (2.02-8.40); PLATELET COUNT 286 10/3/uL (150-400); RBC DISTRIBUTION WIDTH 15.9 % (12.0-16.0); RED CELL COUNT 2.92 10/6/uL (4.0-5.6)
[2016-11-17 05:15] LABS: MANUAL DIFF NO %
[2016-11-17 05:32] LABS: BUN (BLOOD UREA NITROGEN) 6 MG/DL (6-23); CALCIUM, SERUM 8.1 MG/DL (8.5-10.4); CHLORIDE, SERUM 97 MMOL/L (96-112); CO2 (CARBON DIOXIDE) 24 MMOL/L (24-34); CREATININE 0.41 MG/DL (0.55-1.02); GFR AFRICAN AMERICAN 139 ML/MIN (>=60); GFR NON AFRICAN AMERICAN 120 ML/MIN (>=60); PHOSPHORUS, SERUM 3.5 MG/DL (2.5-4.5); POTASSIUM, SERUM 3.4 MMOL/L (3.5-5.3); SODIUM, SERUM 133 MMOL/L (135-148)
[2016-11-17 05:33] LABS: GLUCOSE, SERUM 79 MG/DL (60-99)
[2016-11-17 06:50] LABS: PROCALCITONIN 0.11 ng/mL (<0.5)
[2016-11-18 05:32] LABS: BASOPHILS 0.3 %; BASOPHILS ABSOLUTE 0.03 10/3/uL (0.0-0.16); EOSINOPHILS 1.4 %; EOSINOPHILS ABSOLUTE 0.13 10/3/uL (0.0-0.53); HEMATOCRIT 26.4 % (36.0-48.0); HEMOGLOBIN 8.7 g/dL (12.0-16.0); IMMATURE GRANULOCYTES 1.7 %; IMMATURE GRANULOCYTES ABSOLUTE 0.16 10/3/uL (0.0-0.11); LYMPHOCYTES 17.6 %; LYMPHOCYTES ABSOLUTE 1.62 10/3/uL (0.67-4.30); MEAN CORPUSCULAR HEMOGLOB 30.4 pg (26.0-34.0); MEAN CORPUSCULAR VOLUME 92.3 fL (80-100); MONOCYTES 12.7 %; MONOCYTES ABSOLUTE 1.17 10/3/uL (0.21-1.20); NEUTROPHILS 66.3 %; NEUTROPHILS ABSOLUTE 6.09 10/3/uL (2.02-8.40); PLATELET COUNT 306 10/3/uL (150-400); RBC DISTRIBUTION WIDTH 16.1 % (12.0-16.0); RED CELL COUNT 2.86 10/6/uL (4.0-5.6); WHITE BLOOD CELLS 9.2 10/3/uL (4.5-10.5)
[2016-11-18 05:33] LABS: MANUAL DIFF NO %
[2016-11-18 05:48] LABS: BUN (BLOOD UREA NITROGEN) 8 MG/DL (6-23); CHLORIDE, SERUM 97 MMOL/L (96-112); CO2 (CARBON DIOXIDE) 25 MMOL/L (24-34); CREATININE 0.47 MG/DL (0.55-1.02); GFR AFRICAN AMERICAN 133 ML/MIN (>=60); GFR NON AFRICAN AMERICAN 114 ML/MIN (>=60); GLUCOSE, SERUM 82 MG/DL (60-99); PHOSPHORUS, SERUM 3.1 MG/DL (2.5-4.5); SODIUM, SERUM 131 MMOL/L (135-148)
[2016-11-18 05:49] LABS: POTASSIUM, SERUM 4.1 MMOL/L (3.5-5.3)
[2016-11-19 05:07] LABS: BASOPHILS 0.6 %; BASOPHILS ABSOLUTE 0.05 10/3/uL (0.0-0.16); EOSINOPHILS 3.5 %; EOSINOPHILS ABSOLUTE 0.28 10/3/uL (0.0-0.53); HEMATOCRIT 28.5 % (36.0-48.0); HEMOGLOBIN 9.2 g/dL (12.0-16.0); IMMATURE GRANULOCYTES 0.9 %; IMMATURE GRANULOCYTES ABSOLUTE 0.07 10/3/uL (0.0-0.11); LYMPHOCYTES 18.8 %; LYMPHOCYTES ABSOLUTE 1.52 10/3/uL (0.67-4.30); MEAN CORPUS HGB CONC 32.3 g/dL (32.0-36.0); MEAN CORPUSCULAR VOLUME 92.8 fL (80-100); MONOCYTES 14.1 %; MONOCYTES ABSOLUTE 1.14 10/3/uL (0.21-1.20); NEUTROPHILS 62.1 %; NEUTROPHILS ABSOLUTE 5.02 10/3/uL (2.02-8.40); PLATELET COUNT 316 10/3/uL (150-400); RED CELL COUNT 3.07 10/6/uL (4.0-5.6); WHITE BLOOD CELLS 8.1 10/3/uL (4.5-10.5)
[2016-11-19 05:09] LABS: MANUAL DIFF NO %
[2016-11-19 05:23] LABS: BUN (BLOOD UREA NITROGEN) 8 MG/DL (6-23); CALCIUM, SERUM 8.2 MG/DL (8.5-10.4); CHLORIDE, SERUM 94 MMOL/L (96-112); CO2 (CARBON DIOXIDE) 24 MMOL/L (24-34); CREATININE 0.47 MG/DL (0.55-1.02); GFR AFRICAN AMERICAN 133 ML/MIN (>=60); GFR NON AFRICAN AMERICAN 114 ML/MIN (>=60); GLUCOSE, SERUM 75 MG/DL (60-99); PHOSPHORUS, SERUM 3.8 MG/DL (2.5-4.5); POTASSIUM, SERUM 3.8 MMOL/L (3.5-5.3); SODIUM, SERUM 129 MMOL/L (135-148)
[2016-11-20 05:17] LABS: BASOPHILS 0.8 %; BASOPHILS ABSOLUTE 0.06 10/3/uL (0.0-0.16); EOSINOPHILS ABSOLUTE 0.29 10/3/uL (0.0-0.53); HEMATOCRIT 27.9 % (36.0-48.0); HEMOGLOBIN 9.1 g/dL (12.0-16.0); IMMATURE GRANULOCYTES 1.6 %; IMMATURE GRANULOCYTES ABSOLUTE 0.12 10/3/uL (0.0-0.11); LYMPHOCYTES 23.5 %; LYMPHOCYTES ABSOLUTE 1.72 10/3/uL (0.67-4.30); MEAN CORPUS HGB CONC 32.6 g/dL (32.0-36.0); MEAN CORPUSCULAR VOLUME 92.1 fL (80-100); MEAN PLATELET VOLUME 8.9 fL (9.2-13.0); MONOCYTES 13.4 %; MONOCYTES ABSOLUTE 0.98 10/3/uL (0.21-1.20); NEUTROPHILS 56.7 %; NEUTROPHILS ABSOLUTE 4.16 10/3/uL (2.02-8.40); PLATELET COUNT 337 10/3/uL (150-400); RBC DISTRIBUTION WIDTH 15.8 % (12.0-16.0); RED CELL COUNT 3.03 10/6/uL (4.0-5.6); WHITE BLOOD CELLS 7.3 10/3/uL (4.5-10.5)
[2016-11-20 05:18] LABS: MANUAL DIFF NO %
[2016-11-20 05:33] LABS: BUN (BLOOD UREA NITROGEN) 7 MG/DL (6-23); CALCIUM, SERUM 8.1 MG/DL (8.5-10.4); CHLORIDE, SERUM 97 MMOL/L (96-112); CO2 (CARBON DIOXIDE) 23 MMOL/L (24-34); CREATININE 0.51 MG/DL (0.55-1.02); GFR AFRICAN AMERICAN 129 ML/MIN (>=60); GFR NON AFRICAN AMERICAN 111 ML/MIN (>=60); GLUCOSE, SERUM 77 MG/DL (60-99); PHOSPHORUS, SERUM 3.8 MG/DL (2.5-4.5); POTASSIUM, SERUM 4.2 MMOL/L (3.5-5.3); SODIUM, SERUM 129 MMOL/L (135-148)
[2016-11-21 05:43] LABS: BASOPHILS 0.6 %; BASOPHILS ABSOLUTE 0.05 10/3/uL (0.0-0.16); EOSINOPHILS 3.8 %; EOSINOPHILS ABSOLUTE 0.34 10/3/uL (0.0-0.53); HEMATOCRIT 30.5 % (36.0-48.0); HEMOGLOBIN 9.9 g/dL (12.0-16.0); IMMATURE GRANULOCYTES ABSOLUTE 0.09 10/3/uL (0.0-0.11); LYMPHOCYTES ABSOLUTE 2.07 10/3/uL (0.67-4.30); MEAN CORPUS HGB CONC 32.5 g/dL (32.0-36.0); MEAN CORPUSCULAR HEMOGLOB 30.2 pg (26.0-34.0); MEAN PLATELET VOLUME 8.8 fL (9.2-13.0); MONOCYTES 13.5 %; MONOCYTES ABSOLUTE 1.22 10/3/uL (0.21-1.20); NEUTROPHILS 58.1 %; NEUTROPHILS ABSOLUTE 5.24 10/3/uL (2.02-8.40); PLATELET COUNT 386 10/3/uL (150-400); RBC DISTRIBUTION WIDTH 15.4 % (12.0-16.0); RED CELL COUNT 3.28 10/6/uL (4.0-5.6)
[2016-11-21 05:47] LABS: MANUAL DIFF NO %
[2016-11-21 05:59] LABS: BUN (BLOOD UREA NITROGEN) 8 MG/DL (6-23); CALCIUM, SERUM 8.6 MG/DL (8.5-10.4); CHLORIDE, SERUM 98 MMOL/L (96-112); CO2 (CARBON DIOXIDE) 25 MMOL/L (24-34); CREATININE 0.58 MG/DL (0.55-1.02); GFR AFRICAN AMERICAN 124 ML/MIN (>=60); GFR NON AFRICAN AMERICAN 107 ML/MIN (>=60); GLUCOSE, SERUM 83 MG/DL (60-99); POTASSIUM, SERUM 4.2 MMOL/L (3.5-5.3); SODIUM, SERUM 134 MMOL/L (135-148)
[2016-11-22 06:05] LABS: BASOPHILS 0.4 %; BASOPHILS ABSOLUTE 0.03 10/3/uL (0.0-0.16); EOSINOPHILS 4.9 %; EOSINOPHILS ABSOLUTE 0.36 10/3/uL (0.0-0.53); HEMOGLOBIN 9.2 g/dL (12.0-16.0); IMMATURE GRANULOCYTES 0.7 %; IMMATURE GRANULOCYTES ABSOLUTE 0.05 10/3/uL (0.0-0.11); LYMPHOCYTES 26.2 %; LYMPHOCYTES ABSOLUTE 1.92 10/3/uL (0.67-4.30); MEAN CORPUS HGB CONC 32.9 g/dL (32.0-36.0); MEAN CORPUSCULAR HEMOGLOB 30.2 pg (26.0-34.0); MEAN CORPUSCULAR VOLUME 91.8 fL (80-100); MEAN PLATELET VOLUME 8.8 fL (9.2-13.0); NEUTROPHILS 52.8 %; NEUTROPHILS ABSOLUTE 3.87 10/3/uL (2.02-8.40); PLATELET COUNT 399 10/3/uL (150-400); RBC DISTRIBUTION WIDTH 15.5 % (12.0-16.0); RED CELL COUNT 3.05 10/6/uL (4.0-5.6); WHITE BLOOD CELLS 7.3 10/3/uL (4.5-10.5)
[2016-11-22 06:06] LABS: MANUAL DIFF NO %
[2016-11-22 06:17] LABS: BUN (BLOOD UREA NITROGEN) 8 MG/DL (6-23); CALCIUM, SERUM 8.4 MG/DL (8.5-10.4); CHLORIDE, SERUM 99 MMOL/L (96-112); CO2 (CARBON DIOXIDE) 24 MMOL/L (24-34); CREATININE 0.51 MG/DL (0.55-1.02); GFR AFRICAN AMERICAN 129 ML/MIN (>=60); GFR NON AFRICAN AMERICAN 111 ML/MIN (>=60); GLUCOSE, SERUM 81 MG/DL (60-99); PHOSPHORUS, SERUM 4.6 MG/DL (2.5-4.5); SODIUM, SERUM 133 MMOL/L (135-148)
[2016-11-23 05:55] LABS: BASOPHILS 0.7 %; BASOPHILS ABSOLUTE 0.05 10/3/uL (0.0-0.16); EOSINOPHILS 4.7 %; EOSINOPHILS ABSOLUTE 0.34 10/3/uL (0.0-0.53); HEMATOCRIT 30.1 % (36.0-48.0); HEMOGLOBIN 9.9 g/dL (12.0-16.0); IMMATURE GRANULOCYTES ABSOLUTE 0.07 10/3/uL (0.0-0.11); LYMPHOCYTES 28.5 %; LYMPHOCYTES ABSOLUTE 2.04 10/3/uL (0.67-4.30); MEAN CORPUS HGB CONC 32.9 g/dL (32.0-36.0); MEAN CORPUSCULAR VOLUME 91.2 fL (80-100); MEAN PLATELET VOLUME 8.6 fL (9.2-13.0); MONOCYTES 14.2 %; MONOCYTES ABSOLUTE 1.02 10/3/uL (0.21-1.20); NEUTROPHILS 50.9 %; NEUTROPHILS ABSOLUTE 3.64 10/3/uL (2.02-8.40); PLATELET COUNT 417 10/3/uL (150-400); RBC DISTRIBUTION WIDTH 15.4 % (12.0-16.0); WHITE BLOOD CELLS 7.2 10/3/uL (4.5-10.5)
[2016-11-23 05:57] LABS: MANUAL DIFF NO %
[2016-11-23 06:07] LABS: BUN (BLOOD UREA NITROGEN) 7 MG/DL (6-23); CALCIUM, SERUM 8.6 MG/DL (8.5-10.4); CHLORIDE, SERUM 95 MMOL/L (96-112); CO2 (CARBON DIOXIDE) 25 MMOL/L (24-34); CREATININE 0.59 MG/DL (0.55-1.02); GFR AFRICAN AMERICAN 123 ML/MIN (>=60); GFR NON AFRICAN AMERICAN 106 ML/MIN (>=60); GLUCOSE, SERUM 78 MG/DL (60-99); PHOSPHORUS, SERUM 4.6 MG/DL (2.5-4.5); POTASSIUM, SERUM 3.3 MMOL/L (3.5-5.3); SODIUM, SERUM 132 MMOL/L (135-148)
[2016-11-24 05:42] LABS: BASOPHILS 0.4 %; BASOPHILS ABSOLUTE 0.03 10/3/uL (0.0-0.16); EOSINOPHILS 4.6 %; EOSINOPHILS ABSOLUTE 0.35 10/3/uL (0.0-0.53); HEMATOCRIT 29.9 % (36.0-48.0); HEMOGLOBIN 9.8 g/dL (12.0-16.0); IMMATURE GRANULOCYTES 0.7 %; IMMATURE GRANULOCYTES ABSOLUTE 0.05 10/3/uL (0.0-0.11); LYMPHOCYTES 32.4 %; LYMPHOCYTES ABSOLUTE 2.44 10/3/uL (0.67-4.30); MANUAL DIFF NO %; MEAN CORPUS HGB CONC 32.8 g/dL (32.0-36.0); MEAN CORPUSCULAR HEMOGLOB 30.2 pg (26.0-34.0); MEAN PLATELET VOLUME 8.5 fL (9.2-13.0); MONOCYTES 12.6 %; MONOCYTES ABSOLUTE 0.95 10/3/uL (0.21-1.20); NEUTROPHILS 49.3 %; NEUTROPHILS ABSOLUTE 3.71 10/3/uL (2.02-8.40); PLATELET COUNT 403 10/3/uL (150-400); RBC DISTRIBUTION WIDTH 15.3 % (12.0-16.0); RED CELL COUNT 3.25 10/6/uL (4.0-5.6); WHITE BLOOD CELLS 7.5 10/3/uL (4.5-10.5)
[2016-11-24 06:06] LABS: BUN (BLOOD UREA NITROGEN) 8 MG/DL (6-23); CALCIUM, SERUM 8.4 MG/DL (8.5-10.4); CHLORIDE, SERUM 95 MMOL/L (96-112); CO2 (CARBON DIOXIDE) 22 MMOL/L (24-34); GFR AFRICAN AMERICAN 122 ML/MIN (>=60); GFR NON AFRICAN AMERICAN 106 ML/MIN (>=60); GLUCOSE, SERUM 72 MG/DL (60-99); PHOSPHORUS, SERUM 4.6 MG/DL (2.5-4.5); POTASSIUM, SERUM 3.5 MMOL/L (3.5-5.3); SODIUM, SERUM 132 MMOL/L (135-148)
== END 2016-11-24 18:11 | disposition left against medical advice (07) | DRG 853 ==
LOC: MIC 16:47 → 6NO 11-09 18:06
PROVIDERS: Internal Medicine; Internal Medicine Critical Care Medicine; Internal Medicine Infectious Disease; Internal Medicine Pulmonary Disease; Radiology Radiation Oncology; Surgery
PROC: 0JD90ZZ Extraction of Buttock Subcutaneous Tissue and Fascia, Open Approach (ICD-10-PCS; principal; 2016-11-05 17:15)
PROC: 02HV33Z Insertion of Infusion Device into Superior Vena Cava, Percutaneous Approach (ICD-10-PCS; 2016-11-05 17:15)
PROC: 06H03DZ Insertion of Intraluminal Device into Inferior Vena Cava, Percutaneous Approach (ICD-10-PCS; 2016-11-05 17:15)
PROC: 4A02X4A Measurement of Cardiac Electrical Activity, Guidance, External Approach (ICD-10-PCS; 2016-11-05 17:15)
PROC: 5A2204Z Restoration of Cardiac Rhythm, Single (ICD-10-PCS; 2016-11-06)
DX: A41.9 Sepsis, unspecified organism (principal); J18.9 Pneumonia, unspecified organism; I26.99 Other pulmonary embolism without acute cor pulmonale; R65.21 Severe sepsis with septic shock; J96.01 Acute respiratory failure with hypoxia; D68.51 Activated protein C resistance; E66.01 Morbid (severe) obesity due to excess calories; K61.3 Ischiorectal abscess; I82.411 Acute embolism and thrombosis of right femoral vein; I82.431 Acute embolism and thrombosis of right popliteal vein; I82.441 Acute embolism and thrombosis of right tibial vein; I82.4Z1 Acute embolism and thrombosis of unspecified deep veins of right distal lower extremity; I82.492 Acute embolism and thrombosis of other specified deep vein of left lower extremity; I48.91 Unspecified atrial fibrillation; I49.1 Atrial premature depolarization; E11.9 Type 2 diabetes mellitus without complications; B96.20 Unspecified Escherichia coli [E. coli] as the cause of diseases classified elsewhere; J44.9 Chronic obstructive pulmonary disease, unspecified; I10 Essential (primary) hypertension; B37.2 Candidiasis of skin and nail; E03.9 Hypothyroidism, unspecified; N76.89 Other specified inflammation of vagina and vulva; D63.8 Anemia in other chronic diseases classified elsewhere; F17.210 Nicotine dependence, cigarettes, uncomplicated; Z79.899 Other long term (current) drug therapy; Z88.0 Allergy status to penicillin; Z79.4 Long term (current) use of insulin; Z68.28 Body mass index [BMI] 28.0-28.9, adult; Z93.3 Colostomy status; Z90.49 Acquired absence of other specified parts of digestive tract
CPT/HCPCS: 31720; 36415; 36569; 36600; 37191; 71010; 74176; 80048; 80053; 80069; 81001; 81241; 82330; 82533; 82550; 82553; 82805; 82962; 83036; 83605; 83735; 83880; 84100; 84132; 84145; 84443; 84484; 85014; 85018; 85025; 85347; 85610; 85730; 86850; 86900; 86901; 86920; 87015; 87040; 87070; 87075; 87077; 87086; 87102; 87116; 87186; 87205; 87641; 93005; 93306; 93970; 94002; 94003; 94640; 94660; 94667; 94668; 97110-GO; 97110-GP; 97116-GP; 97163-GP; 97164-GP; 97166-GO; 97530-GP; 99152; 99153; A9270-GY; C1751; C1769; C1880; C9113; J0153; J0282; J0690; J1170; J1720; J1750; J1940; J2250; J2270; J2370; J2405; J2543; J3010; J3370; P9016; P9045; Q9967